=== PATIENT | female | born 1990 | race Caucasian/White ===

== ENCOUNTER 2016-09-02 17:45 | Emergency (ER) | payer OTHER ==
[2016-09-02 18:00] VITALS: BP 110/66; PULSE 72; TEMP 97.9; BMI 38.0
--- NOTE | 2016-09-02 18:03 | PDOC ---
History of Present Illness - General History Source: Patient, Family Exam Limitations: No Limitations - History of Present Illness Initial Comments: 09/02/16 18:34 The patient is a 25 year old female, with a significant past medical history of obesity and ADD, who presents to the emergency department with shortness of breath, chest pain, chills, abdominal pain and diarrhea since yesterday. She reports that her chest pain is localized in the mid sternal chest region, mild in nature, which she describes a pressure like sensation, without radiation or modifying factors. She notes that she gets shortness of breath on minimal exertion. She describes her diarrhea as nonbloody. She describes her abdominal pain as mild and diffused throughout, she denies any radiation or modifying factors. The patient denies headache and dizziness. Denies fever, nausea, vomit and constipation. Denies dysuria, frequency, urgency and hematuria. Allergies: None Past surgical history: None reported Social history: Cigarette use (1.5-2 packs daily), Xanax and tranquilizer use. Alcohol use. PMD - Dr. Arthur Jefferson <Ej Ibarra - Last Filed: 09/02/16 21:06> <Lori Orozco - Last Filed: 09/02/16 21:21> - General History Source: Patient Exam Limitations: No Limitations <Ingrid Whiting - Last Filed: 09/06/16 08:05> - General Chief Complaint: Respiratory Stated Complaint: DIFF BEATHING, VOMITING, DIARRHEA Time Seen by Provider: 09/02/16 17:50 Past History <Ej Ibarra - Last Filed: 09/02/16 21:06> <Lori Orozco - Last Filed: 09/02/16 21:21> - Past Medical History Psychiatric Problems: Yes (ADD) - Immunization History Immunization Up to Date: Yes - Psycho/Social/Smoking Cessation Hx Anxiety: No Suicidal Ideation: No Smoking History: Current every day smoker Have you smoked in the past 12 months: Yes Number of Cigarettes Smoked Daily: 20 If you are a former smoker, when did you quit?: 20 Information on smoking cessation initiated: Yes 'Breaking Loose' booklet given: 09/02/16 Hx Alcohol Use: Yes (occasional) Drug/Substance Use Hx: Yes (XANAX) Substance Use Type: Alcohol, Tranquilizers <Ingrid Whiting - Last Filed: 09/06/16 08:05> - Past Medical History Allergies/Adverse Reactions: Allergies Allergy/AdvReac Type Severity Reaction Status Date / Time No Known Allergies Allergy Verified 05/14/14 19:04 Home Medications: Ambulatory Orders Alprazolam [Xanax] 1 mg PO TID 09/13/13 Amphet Asp/Amphet/D-Amphet [Adderall 20 mg Tablet] 20 mg PO TID 09/13/13 Ondansetron [Zofran Odt -] 4 mg SL TID PRN #10 od.tablet 09/02/16 Trazodone HCl 100 mg PO HS 09/02/16 Review of Systems - Review of Systems Able to Perform ROS?: Yes Comments:: 09/02/16 18:35 GENERAL/CONSTITUTIONAL: +Chills. No fever. No weakness. HEAD, EYES, EARS, NOSE AND THROAT: No change in vision. No ear pain or discharge. No sore throat. CARDIOVASCULAR: +Shortness of breath and chest pain RESPIRATORY: No cough, wheezing, or hemoptysis. GASTROINTESTINAL: +Abdominal pain and diarrhea. No nausea, vomiting, constipation. GENITOURINARY: No dysuria, frequency, or change in urination. MUSCULOSKELETAL: No joint or muscle swelling or pain. No neck or back pain. SKIN: No rash NEUROLOGIC: No headache, vertigo, loss of consciousness, or change in strength/ sensation. ENDOCRINE: No increased thirst. No abnormal weight change HEMATOLOGIC/LYMPHATIC: No anemia, easy bleeding, or history of blood clots. ALLERGIC/IMMUNOLOGIC: No hives or skin allergy. <Ej Ibarra - Last Filed: 09/02/16 21:06> *Physical Exam - Vital Signs Last Vital Signs Temp Pulse Resp BP Pulse Ox 97.9 F 72 18 110/66 100 09/02/16 17:45 09/02/16 17:45 09/02/16 17:45 09/02/16 17:45 09/02/16 17:45 - Physical Exam Comments: 09/02/16 18:37 GENERAL: Awake, alert, and fully oriented, in no acute distress. Obese. HEAD: No signs of trauma, normocephalic, atraumatic EYES: PERRLA, EOMI, sclera anicteric, conjunctiva clear ENT: Auricles normal inspection, hearing grossly normal, nares patent, oropharynx clear without exudates. Moist mucosa NECK: Normal ROM, supple, no lymphadenopathy, JVD, or masses LUNGS: No distress, speaks full sentences, clear to auscultation bilaterally HEART: Regular rate and rhythm, normal S1 and S2, no murmurs, rubs or gallops, peripheral pulses normal and equal bilaterally. ABDOMEN: +Left epigastric tenderness and right lower quadrant tenderness. Soft, normoactive bowel sounds. No guarding, no rebound. No masses EXTREMITIES: Normal inspection, Normal range of motion, no edema. No clubbing or cyanosis. NEUROLOGICAL: Cranial nerves II through XII grossly intact. Normal speech, normal gait, no focal sensorimotor deficits SKIN: Warm, Dry, normal turgor, no rashes or lesions noted. <Ej Ibarra - Last Filed: 09/02/16 21:06> - Vital Signs Last Vital Signs Temp Pulse Resp BP Pulse Ox 97.9 F 72 18 110/66 100 09/02/16 17:45 09/02/16 17:45 09/02/16 17:45 09/02/16 17:45 09/02/16 17:45 <Lori Orozco - Last Filed: 09/02/16 21:21> - Vital Signs Last Vital Signs Temp Pulse Resp BP Pulse Ox 97.9 F 72 18 110/66 100 09/02/16 17:45 09/02/16 17:45 09/02/16 17:45 09/02/16 17:45 09/02/16 17:45 <Ingrid Whiting - Last Filed: 09/06/16 08:05> ED Treatment Course - LABORATORY CBC & Chemistry Diagram: 09/02/16 18:30 09/02/16 18:30 - RADIOLOGY Radiograph Interpretation: 09/02/16 19:51 Chest X-Ray Reviewed by: Dr. Rochelle Odell Impression: Unremarkable examination without evidence of acute lung disease CT abdomen and pelvis with contrast Reviewed by: Dr. Rochelle Odell Impression: Diverticula in the transverse and to a lesser extent descending colon. Inadequate distention versus thickening of the transverse, splenic flexure and proximal descending colon wall without surrounding inflammatory changes. However , colitis, inflammatory versus infectious cannot be ruled out. Otherwise, no acute process is identified within the abdomen and pelvis. <Ej Ibarra - Last Filed: 09/02/16 21:06> - LABORATORY CBC & Chemistry Diagram: 09/02/16 18:30 09/02/16 18:30 - ADDITIONAL ORDERS Additional order review: Laboratory Results 09/02/16 09/02/16 09/02/16 18:30 18:30 18:17 Sodium 140 Potassium 3.9 Chloride 105 Carbon Dioxide 25 Anion Gap 10 BUN 11 Creatinine 0.7 Creat Clearance w eGFR > 60 Random Glucose 101 Calcium 9.6 Total Bilirubin 1.3 H AST 19 ALT 29 Alkaline Phosphatase 61 Total Protein 7.6 Albumin 4.3 Total Amylase 24 L Lipase 31 Urine Color Yellow Urine Appearance Clear Urine pH 7.0 Ur Specific [place] 1.010 Urine Protein Negative Urine Glucose (UA) Negative Urine Ketones Negative Urine Blood Negative Urine Nitrite Negative Urine Bilirubin Negative Urine Urobilinogen 0.2 e.u/dl Ur Leukocyte Esterase 1+ H Urine RBC 0-2 Urine WBC 5-10 Ur Epithelial Cells Few Urine Bacteria Few Urine HCG, Qual Negative 09/02/16 18:30 RBC 5.07 MCV 90.0 MCHC 33.2 RDW 11.8 MPV 8.4 Neutrophils % 77.0 Lymphocytes % 16.6 Monocytes % 4.3 Eosinophils % 1.0 Basophils % 1.1 <Lori Orozco - Last Filed: 09/02/16 21:21> - LABORATORY CBC & Chemistry Diagram: 09/02/16 18:30 09/02/16 18:30 <Ingrid Whiting - Last Filed: 09/06/16 08:05> Medical Decision Making - Medical Decision Making 09/02/16 18:02 A portion of this note was documented by scribe services under my direction. I have reviewed the details of the note, within reason, and agree with the documentation with the following case summary and management plan written by me. Nursing documentation reviewed and incorporated into medical decision making this is a 25-year-old female presented to the emergency Department with multiple complaints complaints including abdominal pain, nausea, vomiting, cough. No fever No chills Patient has had vomiting and diarrhea for the past 4 days. Ill contact? Sister. No recent travel no change in diet. On examination: Patient has diffuse abdominal tenderness No guarding No rebound will do labs Will do CT abd and pelvic Will do CXR Signed out to Dr. orozco pending all studies <Ingrid Whiting - Last Filed: 09/06/16 08:05> *DC/Admit/Observation/Transfer - Attestations Scribe Attestion: 09/02/16 18:37 Documentation prepared by Ej Ibarra, acting as director medical surgical for Ingrid Whiting MD <Ej Ibarra - Last Filed: 09/02/16 21:06> <Lori Orozco - Last Filed: 09/02/16 21:21> <Ingrid Whiting - Last Filed: 09/06/16 08:05> Diagnosis at time of Disposition: Enterocolitis - Discharge Dispostion Disposition: HOME Condition at time of disposition: Stable - Prescriptions Prescriptions: Ondansetron [Zofran Odt -] 4 mg SL TID PRN #10 od.tablet PRN Reason: Nausea - Referrals Referrals: Johann Jefferson MD [Primary Care Provider] - Tonio Arshad MD [Staff Physician] - Call tomorrow - Patient Instructions Printed Discharge Instructions: DI for Colitis Additional Instructions: clear liquids advance diet cautiously Zofran 4mg ODT up to 3 times a day as needed for nausea call Dr Arshad to arrange followup within 3-4 days return to ER if symptoms worsen
[2016-09-02 18:46] LABS: URINE APPEARANCE Clear; URINE BILIRUBIN Negative (NEGATIVE); URINE BLOOD Negative (NEGATIVE); URINE GLUCOSE (UA) Negative (NEGATIVE); URINE KETONE Negative (NEGATIVE); URINE NITRITE Negative (NEGATIVE); URINE PROTEIN Negative (NEGATIVE); URINE UROBILINOGEN 0.2 E.U/dl (0.2-1.0)
[2016-09-02 18:50] LABS: URINE COLOR YELLOW; URINE LEUK ESTERASE 1+ (NEGATIVE)
[2016-09-02 18:53] LABS: BASOPHIL 1.1 % (0-2.0); MCH 29.9 pg (25.7-33.7); MCHC 33.2 g/dl (32.0-36.0); MEAN PLT VOLUME 8.4 fl (7.5-11.1); PLATELET COUNT 268 K/MM3 (134-434); RDW 11.8 % (11.6-15.6); WHITE BLOOD COUNT 12.4 K/mm3 (4.0-10.0)
[2016-09-02 18:59] LABS: URINE BACTERIA FEW /hpf (NEGATIVE); URINE RBC 0-2 /hpf (0-3)
[2016-09-02 19:07] LABS: ALBUMIN 4.3 g/dl (3.5-5.0); ALK PHOS 61 U/L (32-92); AMYLASE 24 U/L (25-125); ANION GAP 10 (8-16); BILIRUBIN,TOTAL 1.3 mg/dl (0.2-1.0); CALCIUM 9.6 mg/dl (8.4-10.2); CO2 25 mmol/L (22-28); CREATININE 0.7 mg/dl (0.6-1.3); GLUCOSE,RANDOM 101 mg/dl (74-106); SGOT/AST 19 U/L (10-42); SGPT/ALT 29 U/L (10-40); TOT PROT 7.6 g/dl (6.4-8.3)
[2016-09-02] MEDS ORDERED: SODIUM CHLORIDE 1,000 ML IV ONE (20:32)
--- NOTE | 2016-09-03 00:14 | PDOC ---
*Physical Exam - Vital Signs Last Vital Signs Temp Pulse Resp BP Pulse Ox 97.9 F 72 18 110/66 100 09/02/16 17:45 09/02/16 17:45 09/02/16 17:45 09/02/16 17:45 09/02/16 17:45 ED Treatment Course - LABORATORY CBC & Chemistry Diagram: 09/02/16 18:30 09/02/16 18:30 - ADDITIONAL ORDERS Additional order review: Laboratory Results 09/02/16 09/02/16 09/02/16 18:30 18:30 18:17 Sodium 140 Potassium 3.9 Chloride 105 Carbon Dioxide 25 Anion Gap 10 BUN 11 Creatinine 0.7 Creat Clearance w eGFR > 60 Random Glucose 101 Calcium 9.6 Total Bilirubin 1.3 H AST 19 ALT 29 Alkaline Phosphatase 61 Total Protein 7.6 Albumin 4.3 Total Amylase 24 L Lipase 31 Urine Color Yellow Urine Appearance Clear Urine pH 7.0 Ur Specific [place] 1.010 Urine Protein Negative Urine Glucose (UA) Negative Urine Ketones Negative Urine Blood Negative Urine Nitrite Negative Urine Bilirubin Negative Urine Urobilinogen 0.2 e.u/dl Ur Leukocyte Esterase 1+ H Urine RBC 0-2 Urine WBC 5-10 Ur Epithelial Cells Few Urine Bacteria Few Urine HCG, Qual Negative 09/02/16 18:30 RBC 5.07 MCV 90.0 MCHC 33.2 RDW 11.8 MPV 8.4 Neutrophils % 77.0 Lymphocytes % 16.6 Monocytes % 4.3 Eosinophils % 1.0 Basophils % 1.1 - Medications Given in the ED: ED Medications Discontinued Medications Generic Name Dose Route Start Last Admin Trade Name Freq PRN Reason Stop Dose Admin Sodium Chloride 1,000 mls @ 1,000 mls/hr 09/02/16 20:32 09/02/16 20:30 Normal Saline - IV 09/02/16 21:31 1,000 mls/hr ASDIR ONE Administration Progress Note - Progress Note Progress Note: Care of this patient received from Dr. Whiting. Abdominal/pelvic CT shows no evidence of acute appendicitis. There is some evidence of colonic diverticula but no clear evidence of acute diverticulitis; no pericolonic abscess/free air. There is some wall thickening suggestive of inflammatory process. No other significant abnormal findings present Results discussed with the patient and her family. Patient is concerned about her sensation of working harder to breathe .Patient is speaking in full sentences,breathing easily with pulse ox of 100% on Room air. CXR shows no abnormality. She is reassured that there is no evidence of acute respiratory process Mother states that she has a history of colitis; the family has used Dr. Arshad as director epidemiology. Patient will maintain clear liquid diet and advance cautiously. Follow-up with Dr. Arshad should be within the next 2-3 days. She should return to the emergency room if she has worsening pain, vomiting or fever. *DC/Admit/Observation/Transfer Diagnosis at time of Disposition: Enterocolitis - Discharge Dispostion Disposition: HOME Condition at time of disposition: Stable - Prescriptions Prescriptions: Ondansetron [Zofran Odt -] 4 mg SL TID PRN #10 od.tablet PRN Reason: Nausea - Referrals Referrals: Tonio Arshad MD [Staff Physician] - Call tomorrow Johann Jefferson MD [Primary Care Provider] - - Patient Instructions Printed Discharge Instructions: DI for Colitis Additional Instructions: clear liquids advance diet cautiously Zofran 4mg ODT up to 3 times a day as needed for nausea call Dr Arshad to arrange followup within 3-4 days return to ER if symptoms worsen - Post Discharge Activity
== END 2016-09-02 21:25 | disposition home or self-care (01) ==
LOC: FER 17:45
PROC: 3E0337Z Introduction of Electrolytic and Water Balance Substance into Peripheral Vein, Percutaneous Approach (ICD-10-PCS; principal; 2016-09-02)
DX: K52.9 Noninfective gastroenteritis and colitis, unspecified (principal); E66.9 Obesity, unspecified; Z68.38 Body mass index [BMI] 38.0-38.9, adult; F17.210 Nicotine dependence, cigarettes, uncomplicated; F98.8 Other specified behavioral and emotional disorders with onset usually occurring in childhood and adolescence
CPT/HCPCS: 36415; 71020-TC; 74177-TC; 80053; 81003; 81015; 82150; 83690; 84703; 85025; 87086; 99284-25

== ENCOUNTER 2017-01-02 19:59 | Emergency (ER) | payer OTHER ==
[2017-01-02 20:12] VITALS: BP 110/60; PULSE 86; TEMP 98.6; BMI 39.7
--- NOTE | 2017-01-02 20:31 | PDOC ---
History of Present Illness - General History Source: Patient, Old Records Exam Limitations: No Limitations - History of Present Illness Initial Comments: 01/02/17 21:12 The patient is a 26 year old female with no significant past medical history who presents to the emergency department with back and abdominal pain for 2 days. The patient states that on Friday night her pain began suddenly and has been constant since. The patient describes her pain as shooting, stabbing, and burning in sensation beginning in her mid right back radiating to her lower right back and the upper right quadrant of her abdomen. She notes that her pain is exacerbated by breathing, walking, and any other type of movement. She reports associated nausea, constipation, and decreased appetite. The patient notes that she was seen here a few months ago after having several months of chronic abdominal discomfort that has not resolved. The patient notes that she has been following with Dr. Williamson. <Davis Nath - Last Filed: 01/02/17 21:50> <Lori Orozco - Last Filed: 01/03/17 02:12> - General Chief Complaint: Chronic pain Stated Complaint: CHRONIC ABDOMINAL PAIN Time Seen by Provider: 01/02/17 20:01 Past History <Davis Nath - Last Filed: 01/02/17 21:50> - Past Medical History GI Disorders: Yes (GASTRITIS) Psychiatric Problems: Yes (ADD) - Immunization History Immunization Up to Date: Yes - Psycho/Social/Smoking Cessation Hx Anxiety: Yes Suicidal Ideation: No Smoking History: Current every day smoker Have you smoked in the past 12 months: Yes Number of Cigarettes Smoked Daily: 10 If you are a former smoker, when did you quit?: 20 Information on smoking cessation initiated: Yes 'Breaking Loose' booklet given: 01/02/17 Hx Alcohol Use: Yes (occasional) Drug/Substance Use Hx: Yes (XANAX) Substance Use Type: Alcohol, Tranquilizers <Lori Orozco - Last Filed: 01/03/17 02:12> - Past Medical History Allergies/Adverse Reactions: Allergies Allergy/AdvReac Type Severity Reaction Status Date / Time No Known Allergies Allergy Verified 05/14/14 19:04 Home Medications: Ambulatory Orders Alprazolam [Xanax] 1 mg PO TID 09/13/13 Amphet Asp/Amphet/D-Amphet [Adderall 20 mg Tablet] 20 mg PO TID 09/13/13 Ondansetron [Zofran Odt -] 4 mg SL TID PRN #10 od.tablet 09/02/16 Trazodone HCl 100 mg PO HS 09/02/16 Ketorolac Tromethamine [Toradol] 10 mg PO BID PRN #10 tablet 01/02/17 Omeprazole 40 mg PO DAILY 01/02/17 Review of Systems - Review of Systems Able to Perform ROS?: Yes Comments:: 01/02/17 21:13 CONSTITUTIONAL: Present: Decreased appetite Absent: fever, no chills, no fatigue EYES: Absent: visual changes ENT: Absent: ear pain, no sore throat CARDIOVASCULAR: Absent: chest pain, no palpitations RESPIRATORY: Absent: cough, no SOB GI: Present: Abdominal pain, nausea, constipation Absent: No vomiting, no diarrhea GENITOURINARY: Absent: dysuria, no frequency, no hematuria MUSCULOSKELETAL: Present: Back pain Absent: No arthralgia. SKIN: Absent: rash NEURO: Absent: headache <Davis Nath - Last Filed: 01/02/17 21:50> *Physical Exam - Vital Signs Last Vital Signs Temp Pulse Resp BP Pulse Ox 98.6 F 86 16 110/60 98 01/02/17 20:10 01/02/17 20:10 01/02/17 20:10 01/02/17 20:10 01/02/17 20:10 - Physical Exam Comments: 01/02/17 21:13 GENERAL: The patient is awake, alert, anxious appearing but in no acute distress. HEAD: Normal with no signs of trauma. EYES: Pupils equal, round and reactive to light, extraocular movements intact, sclera anicteric, conjunctiva clear with no pallor. ENT: Ears normal, nares patent, oropharynx clear without exudates. Moist mucous membranes. NECK: Normal range of motion, supple without lymphadenopathy, JVD, or masses. LUNGS: Breath sounds equal, clear to auscultation bilaterally. No wheeze/ crackles. HEART: Regular rate and rhythm, normal S1 and S2 without murmur or rub. ABDOMEN: (+) Moderate right CVA tenderness. Moderate RUQ tenderness with positve murphys sign. Minimal epigstric tenderness. No masses. No organomegaly. EXTREMITIES: Normal range of motion, no edema. No clubbing or cyanosis. No cords, erythema, or tenderness. NEUROLOGICAL: Cranial nerves II through XII grossly intact. Normal speech, normal gait. SKIN: Warm, Dry, normal turgor, no rashes or lesions noted. <Davis Nath - Last Filed: 01/02/17 21:50> - Vital Signs Last Vital Signs Temp Pulse Resp BP Pulse Ox 98.6 F 86 16 110/60 98 01/02/17 20:10 01/02/17 20:10 01/02/17 20:10 01/02/17 20:10 01/02/17 20:10 <Lori Orozco Marii - Last Filed: 01/03/17 02:12> ED Treatment Course - LABORATORY CBC & Chemistry Diagram: 01/02/17 20:50 01/02/17 20:50 - ADDITIONAL ORDERS Additional order review: Laboratory Results 01/02/17 20:45 Urine Color Yellow Urine Appearance Clear Urine pH 6.5 Ur Specific [place] 1.010 Urine Protein Negative Urine Glucose (UA) Negative Urine Ketones Negative Urine Blood Trace-intact Urine Nitrite Negative Urine Bilirubin Negative Urine Urobilinogen 0.2 e.u/dl Ur Leukocyte Esterase Trace Urine HCG, Qual Negative 01/02/17 20:50 RBC 4.82 MCV 88.9 MCHC 35.0 RDW 12.0 MPV 8.6 Neutrophils % 62.5 Lymphocytes % 28.5 D Monocytes % 4.5 Eosinophils % 1.3 Basophils % 3.2 H - RADIOLOGY Radiograph Interpretation: 01/02/17 21:50 EXAM#: TYPE/EXAM: RESULT: [id number] US/GALLBLADDER US [id number] US/KIDNEY / RENAL US HISTORY PROVIDED: Right upper quadrant pain. Real time examination of the abdomen demonstrates the following: The gallbladder is normal in size and free of calculi with no evidence of intra or extrahepatic biliary duct dilatation. The liver is normal in size and texture with no intrahepatic masses seen. The pancreas is normal in size. It is somewhat heterogeneous in texture with no pancreatic masses identified. The spleen is not enlarged. The kidneys are normal in size with the right kidney measuring 10.7 x 5.6 x 4.2 cm and the left kidney measuring 11.7 x 5.5 x 4.6 cm. They are normal in position and texture with no evidence of hydronephrosis or contour deforming renal masses. There is no sonographic evidence of nephrolithiasis. There is no evidence of AAA. The IVC is patent. IMPRESSION: 1. Normal gallbladder and biliary tree. 2. Morphologically normal kidneys with no evidence of hydronephrosis or acute pathology. Reported By: Caleb Gary MD 01/02/17 1006 - Medications Given in the ED: ED Medications Discontinued Medications Generic Name Dose Route Start Last Admin Trade Name Lizzy PRN Reason Stop Dose Admin Ketorolac Tromethamine 30 mg 01/02/17 20:43 01/02/17 21:04 Toradol Injection - IVPUSH 01/02/17 20:44 30 mg ONCE ONE Administration <Davis Nath - Last Filed: 01/02/17 21:50> - LABORATORY CBC & Chemistry Diagram: 01/02/17 20:50 01/02/17 20:50 <Lori Orozco - Last Filed: 01/03/17 02:12> Medical Decision Making - Medical Decision Making Documentation has been prepared under my direction and personally reviewed by me in its entirety. I attest that this documented accurately reflects all work, treatment, procedures and medical decision making performed by me. As noted above, this 26-year-old woman with history of anxiety and chronic abdominal pain of unclear etiology presents with a few day history of right flank pain extending to the right upper quadrant of her abdomen. Pain worsens with movement; there is no clear history of trauma or overuse. No worsening of patient's chronic nausea and patient has not vomited. There is been no fever or chills. No history of diarrhea or constipation. Exam shows right flank and right upper quadrant tenderness. Gallbladder/right kidney ultrasound performed to evaluate for biliary abnormality or renal stones/hydronephrosis . No evidence of either cholelithiasis or cholecystitis. There are no kidney stones or hydronephrosis. Only abnormality seen was mild heterogeneoustexture to the pancreas. CBC, chemistry profile, lipase, urinalysis, PGU evaluated CBC shows mild elevation of white blood cell count 11,800. The remainder of the CBC is essentially normal. Chemistry profile shows no significant abnormality and lipase is normal at 26. UTI is normal and PGU is negative. Patient was given Toradol 30 mg IV and liter normal saline. Patient states that her pain has been resolved. Since biliary/renal stones appeared to be ruled out and no other solid tissue abnormality seen on ultrasound (since lipase is normal, acute pancreatitis is highly unlikely), pain could be musculoskeletal. Less likely, given patient's age, is zoster prior to onset of rash. Both of these possibilities were discussed with the patient. Since the IV Toradol was so effective, the patient asked for prescription for oral formulation of ketorolac. Patient will be given a small (#10) prescription for Toradol 10 mg by mouth. The patient was cautioned to take this medication with food. She should follow up with her general doctor., Also, spinal surgeon may be needed for consultation if pain is persistent since thoracic spinal nerve issues may be present. Patient's father has been seen by Dr. Castillo in the past and patient states that she would follow-up with him if needed. <Lori Orozco - Last Filed: 01/03/17 02:12> *DC/Admit/Observation/Transfer - Attestations Scribe Attestion: 01/02/17 21:13 Documentation prepared by Davis Nath, acting as medical and health services manager for Lori Orozco MD. <Davis Nath - Last Filed: 01/02/17 21:50> <Lori Orozco - Last Filed: 01/03/17 02:12> Diagnosis at time of Disposition: Right flank pain - Discharge Dispostion Disposition: HOME Condition at time of disposition: Stable - Prescriptions Prescriptions: Ketorolac Tromethamine [Toradol] 10 mg PO BID PRN #10 tablet PRN Reason: Pain - Referrals Referrals: Johann Jefferson MD [Primary Care Provider] - - Patient Instructions Printed Discharge Instructions: DI for Flank Pain Additional Instructions: Toradol 10 mg up to twice a day as needed for pain take Toradol with food as discussed Follow-up with your general doctor and with infectious disease doctor as scheduled Return to ER if you have severe pain/fever/vomiting
[2017-01-02] MEDS ORDERED: KETOROLAC TROMETHAMINE 30 MG/1 ML VIAL IVPUSH ONE (20:43)
[2017-01-02] MEDS ORDERED: SODIUM CHLORIDE 1,000 ML IV STA (20:43)
[2017-01-02 20:52] LABS: PH,URINE 6.5 (4.5-8); URINE APPEARANCE Clear; URINE BILIRUBIN Negative (NEGATIVE); URINE BLOOD Trace-intact (NEGATIVE); URINE GLUCOSE (UA) Negative (NEGATIVE); URINE KETONE Negative (NEGATIVE); URINE LEUK ESTERASE Trace (NEGATIVE); URINE NITRITE Negative (NEGATIVE); URINE PROTEIN Negative (NEGATIVE); URINE UROBILINOGEN 0.2 E.U/dl (0.2-1.0)
[2017-01-02] MEDS ORDERED: KETOROLAC TROMETHAMINE 30 MG/1 ML VIAL ONE ×2 (20:55→21:02)
[2017-01-02 20:56] LABS: URINE COLOR YELLOW
[2017-01-02 21:09] LABS: BASOPHIL 3.2 % (0-2.0); EOSINOPHIL 1.3 % (0-4.5); MCH 31.1 pg (25.7-33.7); MEAN CELL VOLUME 88.9 fl (80-96); MEAN PLT VOLUME 8.6 fl (7.5-11.1); NEUTROPHILS 62.5 % (42.8-82.8); PLATELET COUNT 262 K/MM3 (134-434); WHITE BLOOD COUNT 11.8 K/mm3 (4.0-10.8)
[2017-01-02 21:18] LABS: ALBUMIN 4.3 g/dl (3.5-5.0); ALK PHOS 45 U/L (32-92); ANION GAP 4 (8-16); BILIRUBIN,TOTAL 0.7 mg/dl (0.2-1.0); CALCIUM 9.1 mg/dl (8.4-10.2); CO2 24 mmol/L (22-28); CREATININE 0.9 mg/dl (0.6-1.3); GLUCOSE,RANDOM 88 mg/dl (74-106); SGOT/AST 23 U/L (10-42); SGPT/ALT 25 U/L (10-40); TOT PROT 7.3 g/dl (6.4-8.3)
== END 2017-01-02 22:23 | disposition home or self-care (01) ==
LOC: FER 19:59
PROC: 3E0333Z Introduction of Anti-inflammatory into Peripheral Vein, Percutaneous Approach (ICD-10-PCS; principal; 2017-01-02)
PROC: 3E0337Z Introduction of Electrolytic and Water Balance Substance into Peripheral Vein, Percutaneous Approach (ICD-10-PCS; 2017-01-02)
DX: R10.31 Right lower quadrant pain (principal)
CPT/HCPCS: 36415; 76705-TC; 76775-TC; 80053; 81003; 83690; 84703; 85025; 99282-25

== ENCOUNTER 2017-03-13 18:20 | Emergency (ER) | payer OTHER ==
--- NOTE | 2017-03-13 18:25 | PDOC ---
History of Present Illness - General Chief Complaint: Psychiatric Stated Complaint: NUMBNESS, TINGLING TO ARMS/LEGS, HEADACHE Time Seen by Provider: 03/13/17 18:24 - History of Present Illness Initial Comments: 03/13/17 18:24 Ms. Escamilla is a 26 year old female with a significant past medical history of anxiety, ADHD, Endometriosis, Gastritis, Ovarian Cysts, and Fibroids who presents to the emergency department with a 20-30 minute history of tachycardia , dry mouth, hyperventilation, numbness and tingling that began while attempting to purchase a new car. Currently feels light headed and like she will pass out. Denies fever, chills, vomit, diarrhea and constipation. Denies dysuria, frequency, urgency and hematuria. Allergies: NKDA Past surgical history: None Social history: 1 ppd tobacco use Past History - Past Medical History Allergies/Adverse Reactions: Allergies Allergy/AdvReac Type Severity Reaction Status Date / Time No Known Allergies Allergy Verified 03/13/17 18:25 Home Medications: Ambulatory Orders Alprazolam [Xanax] 1 mg PO TID 09/13/13 Control Pills 1 tab PO ASDIR 03/13/17 L.acidoph,Paracasei, B.lactis [Probiotic] 1 each PO DAILY 03/13/17 Pantoprazole Sodium 40 mg PO DAILY 03/13/17 GI Disorders: Yes (GASTRITIS) Psychiatric Problems: Yes (ADD) - Immunization History Immunization Up to Date: Yes - Psycho/Social/Smoking Cessation Hx Anxiety: Yes Suicidal Ideation: No Smoking History: Current every day smoker Have you smoked in the past 12 months: Yes Number of Cigarettes Smoked Daily: 10 If you are a former smoker, when did you quit?: 20 'Breaking Loose' booklet given: 01/02/17 Hx Alcohol Use: Yes (occasional) Drug/Substance Use Hx: Yes (XANAX) Substance Use Type: Alcohol, Tranquilizers Review of Systems - Review of Systems Comments:: 03/13/17 18:24 GENERAL/CONSTITUTIONAL: No fever or chills. No weakness. HEAD, EYES, EARS, NOSE AND THROAT: No change in vision. No ear pain or discharge. No sore throat. CARDIOVASCULAR: Reports short of breath and breathing quickly RESPIRATORY: No cough, wheezing, or hemoptysis. GASTROINTESTINAL: +Nauseau. No vomiting, diarrhea or constipation. GENITOURINARY: No dysuria, frequency, or change in urination. MUSCULOSKELETAL: No joint or muscle swelling or pain. No neck or back pain. SKIN: No rash NEUROLOGIC: +Current headache. No vertigo, loss of consciousness, or change in strength/sensation. ENDOCRINE: No increased thirst. No abnormal weight change HEMATOLOGIC/LYMPHATIC: No anemia, easy bleeding, or history of blood clots. ALLERGIC/IMMUNOLOGIC: No hives or skin allergy. *Physical Exam - Physical Exam Comments: 03/13/17 18:24 GENERAL: +Acutely Anxious with pressured speech. Awake, alert, and fully oriented, in no acute distress HEAD: No signs of trauma, normocephalic, atraumatic EYES: PERRLA, EOMI, sclera anicteric, conjunctiva clear ENT: Auricles normal inspection, hearing grossly normal, nares patent, oropharynx clear without exudates. Moist mucosa NECK: Normal ROM, supple, no lymphadenopathy, JVD, or masses LUNGS: No distress, speaks full sentences, clear to auscultation bilaterally HEART: Regular rate and rhythm, normal S1 and S2, no murmurs, rubs or gallops, peripheral pulses normal and equal bilaterally. ABDOMEN: Soft, nontender, normoactive bowel sounds. No guarding, no rebound. No masses EXTREMITIES: Normal inspection, Normal range of motion, no edema. No clubbing or cyanosis. NEUROLOGICAL: Cranial nerves II through XII grossly intact. Normal speech, normal gait, no focal sensorimotor deficits SKIN: Warm, Dry, normal turgor, no rashes or lesions noted. Medical Decision Making - Medical Decision Making 03/13/17 18:48 Ms. Escamilla presents with acute anxiety symptoms developed while buying a car. She reports taking xanax 4 times a day at baseline but that her evening dose was not helpful for this episode. Valium 10 and zofran 8 given orally. 03/13/17 19:02 Patient relaxed and laughing in bed. Handed off to incoming team. *DC/Admit/Observation/Transfer Diagnosis at time of Disposition: Panic attack - Discharge Dispostion Condition at time of disposition: Stable
--- NOTE | 2017-03-13 18:30 | PDOC ---
Attending Attestation - Resident Resident Name: Jerad Laws - ED Attending Attestation I have performed the following: I have examined & evaluated the patient, The case was reviewed & discussed with the resident, I agree w/resident's findings & plan, Exceptions are as noted - HPI HPI: 03/13/17 18:29 Anxious - Physicial Exam PE: 03/13/17 18:29 VSS NAD - Medical Decision Making 03/13/17 18:[address] Laws's Assessment and Plan
[2017-03-13 18:33] VITALS: BP 122/75; PULSE 89; TEMP 98.7; BMI 36.0
[2017-03-13] MEDS ORDERED: diazePAM 5 MG TABLET PO ONE (18:35)
[2017-03-13] MEDS ORDERED: ONDANSETRON *ODT* 4 MG TABLET SL ONE (18:35)
[2017-03-13] MEDS ORDERED: diazePAM 5 MG TABLET ONE (18:38)
[2017-03-13] MEDS ORDERED: ONDANSETRON *ODT* 4 MG TABLET ONE (18:38)
--- NOTE | 2017-03-13 19:18 | PDOC ---
*Physical Exam - Vital Signs Last Vital Signs Temp Pulse Resp BP Pulse Ox 98.7 F 89 18 122/75 100 03/13/17 18:20 03/13/17 18:20 03/13/17 18:20 03/13/17 18:20 03/13/17 18:20 ED Treatment Course - Medications Given in the ED: ED Medications Discontinued Medications Generic Name Dose Route Start Last Admin Trade Name Lizzy PRN Reason Stop Dose Admin Diazepam 10 mg 03/13/17 18:35 03/13/17 18:40 Valium - PO 03/13/17 18:36 10 mg ONCE ONE Administration Ondansetron HCl 8 mg 03/13/17 18:35 03/13/17 18:40 Zofran Odt - SL 03/13/17 18:36 8 mg ONCE ONE Administration Progress Note - Progress Note Progress Note: Care of this patient was transferred to me from Dr. Davis at 1900 hrs. Patient is a 26-year-old female who comes in with an anxiety/panic attack. Patient received Valium prior to my evaluation and arrival in the emergency department. At the time of my reevaluation patient was comfortable, laughing and joking and in no distress. Patient will be discharged home and follow-up with her primary care doctor. *DC/Admit/Observation/Transfer Diagnosis at time of Disposition: Panic attack - Discharge Dispostion Condition at time of disposition: Stable - Patient Instructions Additional Instructions: The symptoms your experienced this evening are stable most likely secondary to an anxiety/panic attack. Return to the emergency department immediately with ANY new, persistent or worsening symptoms. Continue any medications as previously prescribed by your physician. You should follow up with your primary doctor as soon as possible regarding today's emergency department visit. . Please make sure your doctor reviews the results of your emergency evaluation. Thank you for coming to the Emergency Department today for your care. It was a pleasure to see you today. Please note that your evaluation is INCOMPLETE until you follow-up with your doctor.
[2017-03-13] MEDS ORDERED: SODIUM CHLORIDE 1,000 ML IV ONE (19:22)
[2017-03-13] MEDS ORDERED: ONDANSETRON 4 MG/2 ML VIAL IVPUSH ONE (19:22)
[2017-03-13 19:35] LABS: URINE APPEARANCE Clear; URINE BILIRUBIN Negative (NEGATIVE); URINE GLUCOSE (UA) Negative (NEGATIVE); URINE KETONE Negative (NEGATIVE); URINE NITRITE Negative (NEGATIVE); URINE PROTEIN Negative (NEGATIVE); URINE UROBILINOGEN 0.2 (0.2-1.0)
[2017-03-13 19:36] LABS: URINE BLOOD Trace-intact (NEGATIVE); URINE COLOR YELLOW; URINE LEUK ESTERASE TRACE (NEGATIVE)
[2017-03-13 19:44] LABS: MCH 30.8 pg (25.7-33.7); MCHC 34.4 g/dl (32.0-36.0); MEAN CELL VOLUME 89.6 fl (80-96); MEAN PLT VOLUME 8.5 fl (7.5-11.1); PLATELET COUNT 253 K/MM3 (134-434); RDW 11.6 % (11.6-15.6); WHITE BLOOD COUNT 11.2 K/mm3 (4.0-10.8)
[2017-03-13 20:01] LABS: ALBUMIN 4.3 g/dl (3.5-5.0); ALK PHOS 61 U/L (32-92); ANION GAP 9 (8-16); BILIRUBIN,TOTAL 0.6 mg/dl (0.2-1.0); CALCIUM 9.8 mg/dl (8.4-10.2); CO2 26 mmol/L (22-28); CREATININE 0.8 mg/dl (0.6-1.3); GLUCOSE,RANDOM 96 mg/dl (74-106); SGOT/AST 21 U/L (10-42); SGPT/ALT 23 U/L (10-40); TOT PROT 7.5 g/dl (6.4-8.3)
[2017-03-13 20:14] LABS: PLATELET ESTIMATE ADEQUATE (NORMAL)
[2017-03-13 20:15] LABS: URINE BACTERIA FEW /hpf (NEGATIVE); URINE RBC 0-1 /hpf (0-3)
[2017-03-13] MEDS ORDERED: MECLIZINE HCL 25 MG TABLET (FP) PO ONE (20:17)
[2017-03-13] MEDS ORDERED: MECLIZINE HCL 25 MG TABLET (FP) ONE (20:18)
--- NOTE | 2017-03-13 20:25 | PDOC ---
*Physical Exam - Vital Signs Last Vital Signs Temp Pulse Resp BP Pulse Ox 98.7 F 89 18 122/75 100 03/13/17 18:20 03/13/17 18:20 03/13/17 18:20 03/13/17 18:20 03/13/17 18:20 ED Treatment Course - LABORATORY CBC & Chemistry Diagram: 03/13/17 19:30 03/13/17 19:30 - ADDITIONAL ORDERS Additional order review: Laboratory Results 03/13/17 03/13/17 19:30 19:20 Sodium 139 Potassium 3.8 Chloride 104 Carbon Dioxide 26 Anion Gap 9 BUN 10 Creatinine 0.8 Creat Clearance w eGFR > 60 Random Glucose 96 Calcium 9.8 Total Bilirubin 0.6 AST 21 ALT 23 Alkaline Phosphatase 61 D Total Protein 7.5 Albumin 4.3 Urine Color Yellow Urine Appearance Clear Urine pH 7.0 Ur Specific [place] 1.010 Urine Protein Negative Urine Glucose (UA) Negative Urine Ketones Negative Urine Blood Trace-intact H Urine Nitrite Negative Urine Bilirubin Negative Urine Urobilinogen 0.2 Ur Leukocyte Esterase Trace H Urine RBC 0-1 Urine WBC 2-5 Ur Epithelial Cells Few Urine Bacteria Few Urine HCG, Qual Negative 03/13/17 19:30 RBC 5.17 MCV 89.6 MCHC 34.4 RDW 11.6 MPV 8.5 Neutrophils % Y Lymphocytes % Y - Medications Given in the ED: ED Medications Discontinued Medications Generic Name Dose Route Start Last Admin Trade Name Guevaraq PRN Reason Stop Dose Admin Diazepam 10 mg 03/13/17 18:35 03/13/17 18:40 Valium - PO 03/13/17 18:36 10 mg ONCE ONE Administration Ondansetron HCl 8 mg 03/13/17 18:35 03/13/17 18:40 Zofran Odt - SL 03/13/17 18:36 8 mg ONCE ONE Administration Progress Note - Progress Note Progress Note: Prior to discharge patient began to feel like the room was spinning and symptoms of vertigo. Patient was concerned that there was something more serious causing her symptoms. Patient was quite anxious about her symptoms so the decision was made to do a basic workup including labs and cardiogram. Patient's cardiogram showed a normal sinus rhythm at a rate of 78, normal intervals no acute ST-T wave changes and was a normal EKG. Patient had a white count of 11.2 which is suggestive of a probable viral etiology for her labrinthitis/vertigo. Patient otherwise was slightly hemoconcentrated and was given a liter of IV fluid. Patient's chemistries were unremarkable, her urinalysis was negative with the exception of a trace amount of red cells and white cells but no evidence of a urinary tract infection. Patient was given copies of all of her blood work and discussed with her the most likely cause of her symptoms as labrinthitis most likely of viral etiology. Patient in addition to that was noted to have some anxiety and on arrival in the emergency room earlier was noted to have some hyperventilation and symptoms of a panic attack most likely triggered by the vertigo. Patient condition was discharged home with her parents. Patient does have a primary care doctor she can follow-up with. *DC/Admit/Observation/Transfer Diagnosis at time of Disposition: Panic attack, Acute viral labyrinthitis - Discharge Dispostion Disposition: HOME Condition at time of disposition: Stable - Prescriptions Prescriptions: Meclizine HCl [Antivert -] 25 mg PO TID #21 tablet - Patient Instructions Additional Instructions: The symptoms your experienced this evening are most likely secondary to a virus effecting your inner ear/balance system. This is called labyrinthitis or vertigo. This then triggered and an anxiety/panic attack. For the spinning sensation take meclizine 1 tablet as often as 3 times a day Return to the emergency department immediately with ANY new, persistent or worsening symptoms. Continue any medications as previously prescribed by your physician. You should follow up with your primary doctor as soon as possible regarding today's emergency department visit. . Please make sure your doctor reviews the results of your emergency evaluation. Thank you for coming to the Emergency Department today for your care. It was a pleasure to see you today. Please note that your evaluation is INCOMPLETE until you follow-up with your doctor.
--- NOTE | 2017-03-14 15:54 | EKG ---
Test Reason : Blood Pressure : / mmHG Vent. Rate : 078 BPM Atrial Rate : 078 BPM P-R Int : 156 ms QRS Dur : 086 ms QT Int : 408 ms P-R-T Axes : 032 051 038 degrees QTc Int : 465 ms NORMAL SINUS RHYTHM WITH SINUS ARRHYTHMIA NO PREVIOUS ECGS AVAILABLE Confirmed by MD CHAO, RITIKA ([id number]) on 03/14/2017 3:54:29 PM Referred By: DR YEAGER Confirmed By:RITIKA GUIDRY MD
== END 2017-03-13 20:51 | disposition home or self-care (01) ==
LOC: FER 18:20
PROC: 3E0337Z Introduction of Electrolytic and Water Balance Substance into Peripheral Vein, Percutaneous Approach (ICD-10-PCS; principal; 2017-03-13)
DX: F41.0 Panic disorder [episodic paroxysmal anxiety] (principal); F17.210 Nicotine dependence, cigarettes, uncomplicated
CPT/HCPCS: 36415; 80053; 81003; 81015; 84703; 85025; 93005; 99284-25

== ENCOUNTER 2017-03-25 08:50 | Day surgery (SDC) | payer OTHER ==
[2017-03-24 10:11] VITALS: BMI 36.5
[2017-03-25] MEDS ORDERED: DESFLURANE GAS 240 ML BOTTLE IH ONE (09:44)
[2017-03-25] MEDS ORDERED: SEVOFLURANE 250 ML BTL ONE (09:45)
[2017-03-25] MEDS ORDERED: PROPOFOL 20 ML ONE ×8 (09:57→11:31)
[2017-03-25] MEDS ORDERED: MIDAZOLAM HCL 2 MG/2 ML SINGLE DOSE VIAL ONE ×2 (10:14)
[2017-03-25] MEDS ORDERED: DEXAMETHASONE SOD PHOSPHATE 4 MG/1 ML VIAL ONE (10:15)
[2017-03-25] MEDS ORDERED: ceFAZolin SODIUM 1 GM VIAL ONE (10:15)
[2017-03-25] MEDS ORDERED: KETOROLAC TROMETHAMINE 30 MG/1 ML VIAL ONE (10:15)
[2017-03-25] MEDS ORDERED: SODIUM CHLORIDE 0.9% P/F 10 ML VIAL IJ ONE (10:16)
[2017-03-25] MEDS ORDERED: SUCCINYLCHOLINE CHLORIDE 200 MG/10 ML VIAL ONE (10:16)
[2017-03-25] MEDS ORDERED: ROCURONIUM BROMIDE 50 MG/5 ML VIAL ONE (10:16)
--- NOTE | 2017-03-25 10:16 | HP ---
Past Medical History - Primary Care Physician PCP:: Ángel Beatty - Admission Chief Complaint: pelvic pain, menorrhagia, dysmenorrhia, lt ovarian cyst , r/o endometriosis History of Present Illness: 26 yo f c/o sever pelvic pain worsen before and during periods,not responding to ANSAIDs, also has heavy menses blood running down her legs with clots, no hx of anemia, sono 3 cm complex lt ovarian cyst . r/o endometrioma, admitted for D&C laparoscopy, possible lt ovarian cystectomy and r/o endometriosis. risks of procedure and ulternatives has discussed with patient History Source: Patient Limitations to Obtaining History: No Limitations - Past Medical History Gastrointestinal: Yes: GERD ...: 0 ...Para: 0 Psych: Yes: Anxiety, Panic (on xanex prn) - Past Surgical History Hx Myomectomy: No Hx Transabdominal Cerclage: No - Smoking History Smoking history: Current every day smoker Have you smoked in the past 12 months: Yes Aproximately how many cigarettes per day: 10 If you are a former smoker, when did you quit?: 20 - Alcohol/Substance Use Hx Alcohol Use: Yes (occasional) - Social History History of Recent Travel: No Home Medications - Allergies Allergies/Adverse Reactions: Allergies Allergy/AdvReac Type Severity Reaction Status Date / Time No Known Allergies Allergy Verified 03/24/17 10:15 - Home Medications Home Medications: Ambulatory Orders Alprazolam [Xanax] 1 mg PO QID 09/13/13 L.acidoph,Paracasei, B.lactis [Probiotic] 1 each PO DAILY 03/13/17 Pantoprazole Sodium 40 mg PO DAILY 03/13/17 Docusate Sodium [Colace -] 100 mg PO DAILY 03/24/17 Review of Systems - Review of Systems Constitutional: reports: No Symptoms Eyes: reports: No Symptoms HENT: reports: No Symptoms Neck: reports: No Symptoms Cardiovascular: reports: No Symptoms Respiratory: reports: No Symptoms Gastrointestinal: reports: Abdominal Pain Genitourinary: reports: Vaginal Bleeding Breasts: reports: No Symptoms Reported Musculoskeletal: reports: No Symptoms Integumentary: reports: No Symptoms Neurological: reports: No Symptoms Endocrine: reports: No Symptoms Hematology/Lymphatic: reports: No Symptoms Psychiatric: reports: Anxiety, Panic Physical Exam-SERVICE DELIVERY ANALYST Vital Signs: Vital Signs Temperature 98.5 F 09/12/17 09:19 Pulse Rate 76 03/25/17 09:19 Respiratory Rate 18 03/25/17 09:19 Blood Pressure 107/64 03/25/17 09:19 O2 Sat by Pulse Oximetry (%) 98 03/25/17 09:18 Constitutional: Yes: Well Nourished, No Distress, Calm Eyes: Yes: WNL, Conjunctiva Clear, EOM Intact HENT: Yes: WNL, Atraumatic, Normocephalic Neck: Yes: WNL, Supple, Trachea Midline Cardiovascular: Yes: WNL, Regular Rate and Rhythm Respiratory: Yes: WNL, Regular, CTA Bilaterally Gastrointestinal: Yes: WNL ...Rectal Exam: Yes: WNL Renal/: Yes: WNL Pelvis: Yes: WNL External Genitalia: Yes: Normal Internal Exam Deferred: No Vaginal Exam: Yes: Normal Cervix: Yes: Normal Uterus: Yes: Normal Adnexa: Tender: Left, Right Breast(s): Yes: WNL Musculoskeletal: Yes: WNL Extremities: Yes: WNL Edema: No Integumentary: Yes: WNL Neurological: Yes: WNL, Alert, Oriented ...Motor Strength: WNL Psychiatric: Yes: WNL, Alert, Oriented Problem List - Problem (1) Pelvic pain Code(s): R10.2 - PELVIC AND PERINEAL PAIN (2) Menorrhagia Code(s): N92.0 - EXCESSIVE AND FREQUENT MENSTRUATION WITH REGULAR CYCLE Qualifiers: Menorrahagia type: with regular cycle Qualified Code(s): N92.0 - Excessive and frequent menstruation with regular cycle (3) Left ovarian cyst Code(s): N83.202 - UNSPECIFIED OVARIAN CYST, LEFT SIDE Assessment/Plan r/o endometriosis , plan D&C , laparoscopy , possible left ovarian cystectomy, possible excision and fulguration of endometrioma
[2017-03-25] MEDS ORDERED: LIDOCAINE HCL/PF 2% SDV 5ML VIAL ONE (10:23)
[2017-03-25] MEDS ORDERED: ceFAZolin SODIUM 1 GM VIAL IVPB ONE (10:47)
[2017-03-25] MEDS ORDERED: oxyCODONE HCL 5 MG TABLET PO PRN ×2 (12:32→12:37)
[2017-03-25] MEDS ORDERED: ONDANSETRON 4 MG/2 ML VIAL IVPUSH PRN (12:32)
[2017-03-25] MEDS ORDERED: IBUPROFEN 800 MG/8 ML IJ IVPB PRN (12:37)
[2017-03-25] MEDS ORDERED: IBUPROFEN 600 MG TABLET (FP) PO PRN (12:37)
[2017-03-25] MEDS ORDERED: ONDANSETRON 4 MG/2 ML VIAL IVPB PRN (12:37)
[2017-03-25] MEDS ORDERED: ELECTROLYTE-148 SOLN 1,000 ML IV SCH (12:45)
[2017-03-25] MEDS ORDERED: LACTATED RINGERS SOLUTION 1,000 ML IV SCH (12:45)
[2017-03-25 16:07] VITALS: TEMP 98.1
[2017-03-25 16:11] VITALS: BP 107/61; PULSE 66
[2017-03-25 16:18] LABS: MCH 30.8 pg (25.7-33.7); MCHC 34.7 g/dl (32.0-36.0); MEAN PLT VOLUME 8.8 fl (7.5-11.1); PLATELET COUNT 213 K/MM3 (134-434); RDW 12.2 % (11.6-15.6); WHITE BLOOD COUNT 14.7 K/mm3 (4.0-10.0)
[2017-03-25 17:56] LABS: PLATELET ESTIMATE ADEQUATE (NORMAL); TOTAL CELLS COUNTED 100
[2017-03-25 17:57] LABS: REACTIVE LYMPHOCYTES 1 % (0-80)
--- NOTE | 2017-03-26 16:03 | PATH ---
Surgical Pathology Report Patient Name: RUBIA WALTON [facility]. Rec. #: [id number] /Age/Gender: 1990 (Age: 26) / F Account: [id number] Location: [facility] Taken: 03/25/2017 Received: 03/25/2017 Reported: 03/26/2017 Physicians: Ángel Beatty M.D. Specimen(s) Received A: ENDOMETRIAL CURETTINGS B: RIGHT OVARIAN CYST C: ADHESIONS Clinical History Pelvic pain Final Diagnosis A. ENDOMETRIUM, CURETTAGE: FRAGMENTS OF INACTIVE APPEARING ENDOMETRIUM WITH EVIDENCE OF CHRONIC ENDOMETRITIS. FRAGMENTS OF BENIGN CERVICAL TISSUE WITH SQUAMOUS METAPLASIA. FRAGMENTS OF BENIGN SQUAMOUS EPITHELIUM. B. OVARY, RIGHT, CYSTECTOMY: HEMORRHAGIC CORPUS LUTEUM CYST. C. ADHESION TISSUE: BENIGN FIBROVASCULAR TISSUE AND FIBRINOHEMORRHAGIC MATERIAL CONSISTENT WITH ADHESION. Electronically Signed Tal Haro M.D. Gross Description A. Received in formalin labeled "endometrial curettings" is a 2.2 x 2.0 x 0.3 cm aggregate of valdez-red soft tissue fragments. The formalin is filtered and the specimen is entirely submitted in one cassette. B. Received in formalin labeled "right ovarian cyst" is a 2.8 x 2.3 x 0.7 cm aggregate of valdez-pink soft tissue fragments, consistent with portions of a disrupted ovarian cyst. The specimen is entirely submitted in 3 cassettes. C. Received in formalin labeled "adhesion tissue" is a 0.5 cm in greatest dimension pink-valdez soft tissue fragment. The specimen is submitted in toto in one cassette. 03/25/201703/25/2017
--- NOTE | 2017-03-26 16:17 | PATH ---
Cytology Non-Gynecological Report Patient Name: RUBIA WALTON [facility]. Rec. #: [id number] /Age/Gender: 1990 (Age: 26) / F Account: [id number] Location: [facility] SUR[facility] Taken: 03/25/2017 Received: 03/25/2017 Reported: 03/26/2017 Physicians: Ángel Beatty M.D. Specimen(s) Received PELVIC WASHINGS Clinical History Pelvic pain Final Diagnosis PELVIC WASHINGS: SATISFACTORY FOR EVALUATION. NO MALIGNANT CELLS IDENTIFIED. REACTIVE MESOTHELIAL CELLS HISTIOCYTES AND MIXED INFLAMMATORY CELLS. Comment: Refer to [id number] for the surgical pathology results. Electronically Signed Tal Haro M.D. Gross Description Received is 15 cc of bloody appearing fluid fresh. One cytofunnel slide and one cell block are made.
--- NOTE | 2017-03-31 11:16 | OP ---
DATE OF OPERATION: 03/25/2017 PREOPERATIVE DIAGNOSES: Pelvic pain, menorrhagia, right ovarian cyst, rule out endometriosis. POSTOPERATIVE DIAGNOSES: Right ovarian cyst with right ovarian torsion and chronic pelvic inflammatory disease, and pelvic adhesions. PROCEDURE: Dilatation and curettage and laparoscopy, right ovarian cystectomy and untwisting of the right ovary, and lysis of pelvic adhesions. DESCRIPTION OF OPERATION: The patient was taken to the operating room. Under adequate general anesthesia in dorsal lithotomy position, examination under anesthesia revealed the external genitalia to be normal. Vagina was normal. Cervix clean; no lesion. Uterus: Normal size. Adnexa: No masses palpable. Then, with a weighted speculum in the vagina, anterior lip of the cervix was grasped with single-tooth tenaculum, and then, cervix was slightly dilated. Then, with a smooth curette, uterine cavity was curetted gently. Then, Hulka was introduced into the uterine cavity for manipulation. Then, patient was prepped and draped for a pelviscopy. A small infraumbilical skin incision was made. Veress needle was introduced. Pneumoperitoneum established. A 5-mm trocar was introduced through the subumbilical area. Then, scope was introduced. Under direct vision, a 5-mm trocar was introduced through the left hypogastric and then a 5-mm through the right hypogastric area. Then, visualization of the pelvic organs showed upper abdomen to be normal. There were multiple filmy adhesions in the cul-de-sac area. The left tube was adherent in the cul-de-sac with filmy adhesions. These adhesions were lysed with scissors and with bipolar cautery. Then, hemostasis established. Then, the right ovary had an about 3-4 cm cyst with no excrescence and no adhesions, but the left ovary was twisted in the ovarian ligament, but it had viable tissues. At this time, the ovary was untwisted, and then, the right ovarian cystectomy was done by opening up the ovarian capsule. Then, with the LigaSure bipolar cautery, the cyst was removed from the ovary. Then, hemostasis established. There was some oozing from the ovarian bed which FloSeal was applied, and hemostasis was established. Then, the specimen was removed through the 5-mm trocar. Then, pelvic cavity was irrigated. No active bleeding was seen. There was inflammatory tissue seen in the cul-de-sac from the chronic old PID. The left ovary was normal. Then, the left tube had some filmy adhesions which were lysed and released. Both fimbria appeared to be normal. No hydrosalpinx. Then, the abdomen was emptied of all the gases, instruments withdrawn, and the umbilical and right and left hypogastric areas were closed with interrupted suture of 2-0 Biosyn. The patient tolerated the procedure well, left the OR in good condition. Mauri [id number]
== END 2017-03-25 16:14 | disposition home or self-care (01) ==
LOC: JASU-SURG 08:50
PROVIDERS: ATTEND Obstetrics & Gynecology
PROC: 0UDB7ZX Extraction of Endometrium, Via Natural or Artificial Opening, Diagnostic (ICD-10-PCS; 2017-03-25)
PROC: 0UB04ZZ Excision of Right Ovary, Percutaneous Endoscopic Approach (ICD-10-PCS; principal; 2017-03-25 10:30)
DX: N92.0 Excessive and frequent menstruation with regular cycle (principal); N83.201 Unspecified ovarian cyst, right side; N83.511 Torsion of right ovary and ovarian pedicle; N73.9 Female pelvic inflammatory disease, unspecified
CPT/HCPCS: 36415; 84703; 85025; 87070; 87075; 87102; 87116; 87205; 87206; 87210; 88108; 88304-TC; 88305-TC; 94760

== ENCOUNTER 2017-05-24 15:08 | Emergency (ER) | payer OTHER ==
[2017-05-24 15:58] LABS: BASOPHIL 1.9 % (0-2.0); EOSINOPHIL 1.8 % (0-4.5); MCHC 34.5 g/dl (32.0-36.0); MEAN CELL VOLUME 89.9 fl (80-96); MEAN PLT VOLUME 8.2 fl (7.5-11.1); NEUTROPHILS 66.4 % (42.8-82.8); PLATELET COUNT 282 K/MM3 (134-434); RDW 11.4 % (11.6-15.6); URINE APPEARANCE Clear; URINE BILIRUBIN Negative (NEGATIVE); URINE BLOOD Negative (NEGATIVE); URINE GLUCOSE (UA) Negative (NEGATIVE); URINE KETONE Negative (NEGATIVE); URINE LEUK ESTERASE Negative (NEGATIVE); URINE NITRITE Negative (NEGATIVE); URINE PROTEIN Negative (NEGATIVE); URINE UROBILINOGEN 0.2 (0.2-1.0); WHITE BLOOD COUNT 9.6 K/mm3 (4.0-10.8)
[2017-05-24 16:01] LABS: URINE COLOR YELLOW
[2017-05-24 16:11] VITALS: BP 117/6; PULSE 70; TEMP 98.4; BMI 28.1
[2017-05-24 16:28] LABS: ALBUMIN 4.1 g/dl (3.5-5.0); ALK PHOS 54 U/L (32-92); ANION GAP 8 (8-16); BILIRUBIN,TOTAL 0.7 mg/dl (0.2-1.0); CALCIUM 9.6 mg/dl (8.4-10.2); CO2 27 mmol/L (22-28); CREATININE 0.7 mg/dl (0.6-1.3); GLUCOSE,RANDOM 95 mg/dl (74-106); SGOT/AST 22 U/L (10-42); SGPT/ALT 25 U/L (10-40); TOT PROT 7.3 g/dl (6.4-8.3)
--- NOTE | 2017-05-24 16:31 | PDOC ---
History of Present Illness - General Chief Complaint: Nausea/Vomiting Stated Complaint: DIZZY,DARK STOOL, VOMITING Time Seen by Provider: 05/24/17 15:46 - History of Present Illness Initial Comments: 05/24/17 16:35 The patient is a 26 yo f w/ PMH ovarian cyst, ovarian torsion, gastritis comes into the ED w/ a 1 day history of nausea, vomiting and abdominal pain. Patient states that she was in her normal state of health until about 12:45 pm, when she began to have nausea and vomited. The patient thought she was a red tinge to the vomit, but had no blood when she vomited a second time. In addition to this the patient had one instance of dark stools, but denies any douglas blood. Patient denies chest pain, shortness of breath, fever, chills, vaginal discharge , burning on urination, urinary frequency. Past History - Past Medical History Allergies/Adverse Reactions: Allergies Allergy/AdvReac Type Severity Reaction Status Date / Time No Known Allergies Allergy Verified 05/24/17 15:11 Home Medications: Ambulatory Orders Pantoprazole Sodium 40 mg PO DAILY 03/13/17 Alprazolam [Xanax] 1 mg PO TID PRN 05/24/17 Ibuprofen 800 mg PO Q6H PRN #14 tablet 05/24/17 Metoclopramide HCl [Reglan] 10 mg PO TID PRN #21 tablet 05/24/17 Ondansetron [Zofran -] 8 mg PO PRN PRN 05/24/17 COPD: No GI Disorders: Yes (GASTRITIS) Psychiatric Problems: Yes (ADD) - Immunization History Immunization Up to Date: Yes - Suicide/Smoking/Psychosocial Hx Smoking History: Current every day smoker Have you smoked in the past 12 months: Yes Number of Cigarettes Smoked Daily: 10 If you are a former smoker, when did you quit?: 20 Information on smoking cessation initiated: Yes 'Breaking Loose' booklet given: 05/24/17 Hx Alcohol Use: No Drug/Substance Use Hx: No Substance Use Type: None Review of Systems - Review of Systems Constitutional: No: Chills, Fever, Weakness HEENTM: Yes: Blurred Vision Respiratory: No: Cough, Shortness of Breath, SOB with Exertion Cardiac (ROS): Yes: Lightheadedness. No: Chest Pain, Edema, Palpitations ABD/GI: Yes: Nausea, Vomiting. No: Abdominal Distended, Blood Streaked Bowels, Diarrhea, Rectal Bleeding : No: Burning, Dysuria, Discharge *Physical Exam - Vital Signs Last Vital Signs Temp Pulse Resp BP Pulse Ox 98.4 F 70 20 117/6 97 05/24/17 15:09 05/24/17 15:09 05/24/17 15:09 05/24/17 15:09 05/24/17 15:09 - Physical Exam General Appearance: Yes: Appropriately Dressed. No: Apparent Distress Respiratory/Chest: positive: Lungs Clear, Normal Breath Sounds. negative: Chest Tender, Respiratory Distress, Accessory Muscle Use Cardiovascular: positive: Regular Rhythm, Regular Rate, S1, S2. negative: Edema , JVD, Murmur, Gallop/S3, Gallop/S4 Female Pelvic Exam: positive: normal external exam, cervical os closed, normal adnexa. negative: discharge, lesions Gastrointestinal/Abdominal: positive: Normal Bowel Sounds, Tender (tenderness to palpation in the right lower quadrant), Flat, Soft Integumentary: positive: Normal Color, Dry, Warm ED Treatment Course - LABORATORY CBC & Chemistry Diagram: 05/24/17 15:51 05/24/17 15:44 - ADDITIONAL ORDERS Additional order review: Laboratory Results 05/24/17 15:51 Urine Color Yellow Urine Appearance Clear Urine pH 5.0 D Ur Specific [place] <= 1.005 Urine Protein Negative Urine Glucose (UA) Negative Urine Ketones Negative Urine Blood Negative Urine Nitrite Negative Urine Bilirubin Negative Urine Urobilinogen 0.2 Ur Leukocyte Esterase Negative 05/24/17 15:51 RBC 5.12 MCV 89.9 MCHC 34.5 RDW 11.4 L MPV 8.2 Neutrophils % 66.4 Lymphocytes % 25.3 Monocytes % 4.6 Eosinophils % 1.8 Basophils % 1.9 Medical Decision Making - Medical Decision Making 05/24/17 16:47 The patient is a 26 yo f w/ PMH ovarian cyst s/p surgical removal, ovarian torsion, vertigo, anxiety, gastritis comes into the ED with a 1 day history of nausea, vomiting, abdominal pain and dark stools. The patient has a history of ovarian dysfunction so a STEE[facility] JACK etiology must be considered. Appendicitis must also be considered in a patient with RLQ pain. -CBC, CMP WNL -UA WNL -upreg negative -pelvic exam WNL -transvaginal ultrasound in progress -meclizine 10mg -reglan 10 mg 05/24/17 18:14 -transvaginal ultrasound negative for ovarian cyst or ovarian torsion. -prescribed 800mg ibuprofen Q6H for pain -patient states that Reglan helped her nausea; will prescribe reglan for her to take at home. -patient stable for discharge with close follow up -return parameters discussed. *DC/Admit/Observation/Transfer Diagnosis at time of Disposition: Right sided abdominal pain - Discharge Dispostion Disposition: HOME Condition at time of disposition: Improved Admit: No - Prescriptions Prescriptions: Ibuprofen 800 mg PO Q6H PRN #14 tablet PRN Reason: Pain Metoclopramide HCl [Reglan] 10 mg PO TID PRN #21 tablet PRN Reason: Nausea And/Or Vomiting - Referrals - Patient Instructions Printed Discharge Instructions: DI for Vomiting -- Adult, DI for Nausea -- Adult Additional Instructions: You should follow up with your primary care physician within 1-2 days of discharge. You should also follow up with your OB-[facility] within 1-2 days of discharge. You can take ibuprofen for your pain. You can take reglan for your nausea. We have sent these prescriptions to your pharmacy. If your abdominal pain gets worse, if you begin to experience fevers or chills, if you continue to vomit despite medications or if any of your medications become worse, please call your doctor or return to the Emergency department. - Post Discharge Activity
[2017-05-24] MEDS ORDERED: MECLIZINE HCL 25 MG TABLET (FP) PO ONE (16:48)
[2017-05-24] MEDS ORDERED: MECLIZINE HCL 25 MG TABLET (FP) ONE (16:59)
[2017-05-24] MEDS ORDERED: METOCLOPRAMIDE HCL 10 MG TABLET (FP) PO ONE ×2 (17:18→17:28)
[2017-05-24] MEDS ORDERED: IBUPROFEN 400 MG TABLET (FP) PO ONE ×2 (18:08→18:10)
== END 2017-05-24 18:23 | disposition home or self-care (01) ==
LOC: FER 15:08
DX: R10.31 Right lower quadrant pain (principal); F17.210 Nicotine dependence, cigarettes, uncomplicated; F98.8 Other specified behavioral and emotional disorders with onset usually occurring in childhood and adolescence
CPT/HCPCS: 36415; 76830-TC; 80053; 81003; 84703; 85025; 87491; 87591; 99283-25

== ENCOUNTER 2017-07-16 18:34 | Emergency (ER) | payer OTHER ==
[2017-07-16 18:43] VITALS: BP 110/88; PULSE 106; TEMP 98.7; BMI 38.6
--- NOTE | 2017-07-16 18:45 | PDOC ---
Rapid Medical Evaluation Time Seen by Provider: 07/16/17 18:39 Medical Evaluation: Allergies Allergy/AdvReac Type Severity Reaction Status Date / Time No Known Allergies Allergy Verified 05/24/17 15:11 I have performed a brief in-person evaluation of this patient. The patient presents with a chief complaint of: right arm and b/l knee pain s/p slip and fall on ice yesterday. Pt states her right knee "bent in the opposite direction" and she feels unstable when putting pressure on the right leg. Pertinent physical exam findings: ecchymosis to right distal forearm with TTP; right knee medial and lateral joint line TTP. No patellar TTP b/l. I have ordered the following: hcg. xray b/l knees, right forearm xray The patient will proceed to the ED for further evaluation.
--- NOTE | 2017-07-16 19:42 | PDOC ---
History of Present Illness - General Chief Complaint: Injury Stated Complaint: FALL INJURY Time Seen by Provider: 07/16/17 18:39 - History of Present Illness Initial Comments: 07/16/17 19:26 CHIEF COMPLAINT: R arm, knee pain HISTORY OF PRESENT ILLNESS: 26 yo F presents to fast track with right arm and b/ l knee pain s/p slip and fall on ice yesterday. Pt states her right knee "bent in the opposite direction" and she feels unstable when putting pressure on the right leg. No recent travel or sick contacts. PAST MEDICAL HISTORY: Denies past medical history FAMILY HISTORY: Denies SOCIAL HISTORY: Denies tobacco, alcohol, illicit drug use. SURGICAL HISTORY: Denies ALLERGIES: No known drug allergies REVIEW OF SYSTEMS General/Constitutional: Denies fever or chills. Denies weakness. HEENT: Denies change in vision. Denies ear pain or discharge. Denies sore throat. Cardiovascular: Denies chest pain or shortness of breath. Respiratory: Denies cough, wheezing, or hemoptysis. Gastrointestinal: Denies nausea, vomiting, diarrhea or constipation. Denies rectal bleeding. Genitourinary: Denies dysuria, frequency, or change in urination. Musculoskeletal: Pain to b/l knees, worse on R. Denies joint or muscle swelling or pain. Denies neck or back pain. PHYSICAL EXAM General Appearance: Well-appearing, appropriately dressed. No apparent distress , no intoxication. HEENT: EOMI, PERRLA,. No photophobia, scleral icterus. Respiratory/Chest: Lungs CTAB. Cardiovascular: RRR. S1, S2. Gastrointestinal/Abdominal: Normal bowel sounds. Abdomen soft, non-distended. No tenderness or rebound tenderness. No organomegaly, pulsatile mass, guarding , hernia, hepatomegaly, splenomegaly. Musculoskeletal/Extremities: Ecchymosis to right distal forearm ; tenderness to right anterior medial knee, no ecchymosis or erythema. FROM of all extremities, normal capillary refill. Pelvis Stable. No CVA tenderness. No tenderness to extremities, pedal edema, swelling, erythema or deformity. Integumentary: Appropriate color, dry, warm. No cyanosis, erythema, jaundice or rash Neurologic: parking attendant II-XII intact. Fully oriented, alert. Appropriate mood/affect. Motor strength 5/5. No appreciable EOM palsy, facial droop or sensory deficit. Past History - Past Medical History Allergies/Adverse Reactions: Allergies Allergy/AdvReac Type Severity Reaction Status Date / Time No Known Allergies Allergy Verified 07/16/17 18:43 Home Medications: Ambulatory Orders Pantoprazole Sodium 40 mg PO DAILY 03/13/17 Alprazolam [Xanax] 1 mg PO TID PRN 05/24/17 Ibuprofen 800 mg PO Q6H PRN #14 tablet 05/24/17 Metoclopramide HCl [Reglan] 10 mg PO TID PRN #21 tablet 05/24/17 Ondansetron [Zofran -] 8 mg PO PRN PRN 05/24/17 Dextroamphetamine/Amphetamine [Adderall Xr 20 mg Capsule] 20 mg PO ASDIR COPD: No GI Disorders: Yes (GASTRITIS) Psychiatric Problems: Yes (ADD) - Immunization History Immunization Up to Date: Yes - Suicide/Smoking/Psychosocial Hx Smoking History: Current every day smoker Have you smoked in the past 12 months: Yes Number of Cigarettes Smoked Daily: 20 If you are a former smoker, when did you quit?: 20 Information on smoking cessation initiated: No 'Breaking Loose' booklet given: 05/24/17 Hx Alcohol Use: Yes (SOCIAL) Drug/Substance Use Hx: No Substance Use Type: None *Physical Exam - Vital Signs Last Vital Signs Temp Pulse Resp BP Pulse Ox 98.7 F 106 H 20 110/88 99 07/16/17 18:38 07/16/17 18:38 07/16/17 18:38 07/16/17 18:38 07/16/17 18:38 Medical Decision Making - Medical Decision Making 07/16/17 19:53 26 yo F presents to fast track with right arm and b/l knee pain s/p slip and fall on ice yesterday. -urine preg, x-ray ordered in [facility] awaiting urine -Toradol 60 mg IM Case discussed in detail with LIBERTAD Shane including history, physical exam and ancillary studies. In brief, this patient is being seen in the ED for a chief complaint of: R arm, b/l knee pain I have completed the initial assessment interview note and have ordered the following labs: urine preg I have reviewed the following results: none Pending results: upreg, x-rays Plan for disposition as follows: pending NPA Acosta has assumed care for the patient and will complete the evaluation and treatment. *DC/Admit/Observation/Transfer - Referrals Referrals: Johann Jefferson MD [Primary Care Provider] - - Patient Instructions - Post Discharge Activity
[2017-07-16] MEDS ORDERED: KETOROLAC TROMETHAMINE 60 MG/2 ML VIAL IM ONE (19:54)
[2017-07-16] MEDS ORDERED: KETOROLAC TROMETHAMINE 60 MG/2 ML VIAL ONE (20:37)
--- NOTE | 2017-07-16 21:25 | PDOC ---
*Physical Exam - Vital Signs Last Vital Signs Temp Pulse Resp BP Pulse Ox 98.7 F 106 H 20 110/88 99 07/16/17 18:38 07/16/17 18:38 07/16/17 18:38 07/16/17 18:38 07/16/17 18:38 ED Treatment Course - ADDITIONAL ORDERS Additional order review: Laboratory Results 07/16/17 19:35 Urine HCG, Qual Negative - RADIOLOGY Radiology Studies Ordered: Category Date Time Status FOREARM- RIGHT [RAD] Stat Radiology 07/16/17 20:54 Taken - Medications Given in the ED: ED Medications Discontinued Medications Generic Name Dose Route Start Last Admin Trade Name Freemerson PRN Reason Stop Dose Admin Ketorolac Tromethamine 60 mg 07/16/17 19:54 07/16/17 21:03 Toradol Injection - IM 07/16/17 19:55 60 mg ONCE ONE Administration Progress Note - Progress Note Progress Note: Received patient from LIBERTAD Rucker. X-rays is read by me: No fractures noted. Patient feels relief after receiving Toradol. I will discharge the patient with crutches and knee immobilizer and follow-up with orthopedics. *DC/Admit/Observation/Transfer Diagnosis at time of Disposition: Knee sprain Qualifiers: Encounter type: initial encounter Involved ligament of knee: unspecified ligament Laterality: right Qualified Code(s): S83.91XA - Sprain of unspecified site of right knee, initial encounter - Discharge Dispostion Disposition: HOME Condition at time of disposition: Stable Admit: No - Prescriptions Prescriptions: Tramadol HCl [Ultram] 50 mg PO BID #6 tablet MDD 2 - Referrals Referrals: Johann Jefferson MD [Staff Physician] - Mo Espinoza MD [Staff Physician] - - Patient Instructions Additional Instructions: Place ice on to affected knee for 20 minutes. Remove after 20 minutes and then repeat. Take tramadol as prescribed. You may take Motrin in between doses of tramadol to help control pain. Use crutches until you see orthopedist. You've been given a referral from orthopedist please follow-up 1 week if symptoms do not resolve. Return to emergency department for numbness or tingling to the foot, worsening pain, or any other concerns. Thank you very much for choosing us to provide your emergent healthcare needs. - Post Discharge Activity
== END 2017-07-16 22:17 | disposition home or self-care (01) ==
LOC: JERFT 18:34
PROC: 2W3QXYZ Immobilization of Right Lower Leg using Other Device (ICD-10-PCS; principal; 2017-07-16)
DX: S89.81XA Other specified injuries of right lower leg, initial encounter (principal); S50.11XA Contusion of right forearm, initial encounter; W00.0XXA Fall on same level due to ice and snow, initial encounter; Y93.01 Activity, walking, marching and hiking; Y92.89 Other specified places as the place of occurrence of the external cause; Y99.8 Other external cause status
CPT/HCPCS: 73090-TC-RT; 73560-TC-LT; 73560-TC-RT; 84703; 99282-25

== ENCOUNTER 2017-11-10 11:50 | Emergency (ER) | payer OTHER ==
[2017-11-10 11:58] VITALS: BP 109/61; PULSE 58; TEMP 97.8; BMI 36.8
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
[2017-11-10] MEDS ORDERED: IBUPROFEN 400 MG TABLET (FP) PO ONE (13:05)
[2017-11-10] MEDS ORDERED: IBUPROFEN 600 MG TABLET (FP) PO ONE (13:25)
== END 2017-11-10 13:30 | disposition home or self-care (01) ==
LOC: SUPCPDRO 11:50 → FER 11:50
DX: T25.022A Burn of unspecified degree of left foot, initial encounter (principal); X08.8XXA Exposure to other specified smoke, fire and flames, initial encounter; Y93.89 Activity, other specified; Y92.9 Unspecified place or not applicable; F98.8 Other specified behavioral and emotional disorders with onset usually occurring in childhood and adolescence; F17.210 Nicotine dependence, cigarettes, uncomplicated
CPT/HCPCS: 99282-25

== ENCOUNTER 2018-01-29 22:44 | Emergency (ER) | payer OTHER ==
[2018-01-29 22:51] VITALS: BP 116/71; PULSE 86; TEMP 98.6; BMI 41.9
--- NOTE | 2018-01-29 22:59 | PDOC ---
History of Present Illness - General Chief Complaint: Ear Problem Stated Complaint: RT EAR PAIN Time Seen by Provider: 01/29/18 22:52 History Source: Patient Exam Limitations: No Limitations - History of Present Illness Initial Comments: 01/29/18 22:59 Ms Wade is a 27 yo F with a history of vertigo x 1 year She has been seen by several ENT, has been worked up with MRI, Tilt Table testing (she has had multiple ER visits which were unrevealing) She presents to the ER with a complaint of severe right ear pain She noted sudden onset of Severe right ear pain followed by right sided headache Mother gave ear drops which cause some things to come out of her ear and her ear pain improved Pt reports continued headache No fevers, or chills No direct trauma to the ear drum with Q tip or other blunt instrument No head trauma PMH: Vertigo, Asthma, Gastritis, PSH: Denies Meds: Zofran, Dramamine ALL: NKDA Social: Denies drug or cigarette use FH: Mother gets recurrent ear infections GENERAL/CONSTITUTIONAL: No: fever, chills, weakness, loss of appetite. HEAD, EYES, EARS, NOSE AND THROAT: Yes: right ear pain No: change in vision, discharge, sore throat, throat swelling. CARDIOVASCULAR: No: chest pain, lightheadedness, palpitations, syncope RESPIRATORY: No: cough, shortness of breath GASTROINTESTINAL: No: nausea, vomiting, diarrhea, abdominal pain GENITOURINARY: No: dysuria, hematuria, frequency, urgency, flank pain. MUSCULOSKELETAL: No: back pain, neck pain, joint pain, muscle swelling or pain SKIN: No: lesions, pallor, rash or easy bruising. NEUROLOGIC: Yes: headache, vertigo No: paresthesias, weakness PE: GENERAL: The patient is in no acute distress. HEAD: Normal with no signs of trauma. EYES: PERRLA, EOMI, sclera anicteric, conjunctiva clear. ENT: Ears normal, EAC clean, no debris noted, TM clear, no erythema, no fluid behind ear drum, Moist mucous membranes. NECK: Normal range of motion, supple, no nuchal rigidity LUNGS: Breath sounds equal, clear to auscultation bilaterally HEART:Regular rate and rhythm ABDOMEN: Soft, nontender EXTREMITIES: Normal range of motion NEUROLOGICAL: Cranial nerves II through XII grossly intact. Normal speech. No focal neurological deficits. MUSCULOSKELETAL: Back non-tender to palpation, no CVA tenderness SKIN: No rashes or lesions noted. 01/29/18 23:59 01/30/18 00:08 01/30/18 00:13 01/30/18 00:14 01/30/18 00:15 01/30/18 01:15 Past History - Past Medical History Allergies/Adverse Reactions: Allergies Allergy/AdvReac Type Severity Reaction Status Date / Time No Known Allergies Allergy Verified 11/10/17 11:52 Home Medications: Ambulatory Orders Alprazolam [Xanax] 1 mg PO TID PRN 05/24/17 Ondansetron [Zofran -] 8 mg PO PRN PRN 05/24/17 Dextroamphetamine/Amphetamine [Adderall Xr 20 mg Capsule] 20 mg PO BID 07/16/17 Ibuprofen 800 mg PO TID PRN #20 tablet 11/10/17 Ranitidine [Zantac -] 300 mg PO BID 11/10/17 Albuterol Sulfate [Proair Hfa] 8.5 gm IH PRN PRN 01/29/18 Valtrex 01/29/18 Acetaminophen/Caffeine/Butalb [Fioricet -] 1 tab PO Q8H PRN #10 tablet MDD 3 Meclizine HCl [Antivert -] 25 mg PO TID PRN #21 tablet 01/30/18 Asthma: Yes COPD: No GI Disorders: Yes (GASTRITIS) Psychiatric Problems: Yes (ADD,ANXIETY) Other medical history: HERPES - Immunization History Immunization Up to Date: Yes - Suicide/Smoking/Psychosocial Hx Smoking History: Current every day smoker Have you smoked in the past 12 months: Yes Number of Cigarettes Smoked Daily: 20 If you are a former smoker, when did you quit?: 20 Information on smoking cessation initiated: Yes 'Breaking Loose' booklet given: 11/10/17 Hx Alcohol Use: (social) Drug/Substance Use Hx: No Substance Use Type: None *Physical Exam - Vital Signs Last Vital Signs Temp Pulse Resp BP Pulse Ox 98.6 F 86 18 116/71 99 01/29/18 22:46 01/29/18 22:46 01/29/18 22:46 01/29/18 22:46 01/29/18 22:46 Medical Decision Making - Medical Decision Making 01/30/18 00:10 27 yo F presenting to the ER with a complaint of ear pain and headache Pt has had a long standing history of vertigo which is intermittent and has been a challenge to diagnose Pt now has ear pain and headache above the ear pain Offered to place IV and do IV medications Pt refusing to stay for IV pain medications Requesting po medications Will give: Reglan Tylenol #3 01/30/18 00:40 Pt presented to the nursing station requesting to go home She states that she feels better Small residual headache Would like to go to sleep Will discharge with instructions to take: Excedrin Migraine if headache is moderate Fiorecet if headache is severe Pt will be following up with ENT in [place] Clinical Impression: Otalgia, initial presentation Headache, initial presentation 01/30/18 00:16 01/30/18 01:16 *DC/Admit/Observation/Transfer Diagnosis at time of Disposition: Otalgia of right ear Headache Qualifiers: Headache type: unspecified Headache chronicity pattern: acute headache Intractability: not intractable Qualified Code(s): R51 - Headache - Discharge Dispostion Disposition: HOME Condition at time of disposition: Stable Decision to Admit order: No - Prescriptions Prescriptions: Acetaminophen/Caffeine/Butalb [Fioricet -] 1 tab PO Q8H PRN #10 tablet MDD 3 PRN Reason: severe headache Meclizine HCl [Antivert -] 25 mg PO TID PRN #21 tablet PRN Reason: Vertigo - Referrals Referrals: Julio Hobson MD [Primary Care Provider] - Apolinar Taylor MD [Staff Physician] - Michael Hinton MD [Staff Physician] - - Patient Instructions Printed Discharge Instructions: Vertigo (Alternative Therapy), DI for Vertigo, DI for Headache, DI for Ear Pain-Adult Additional Instructions: Ms. Escamilla Thank you for coming in to the ER today Please be sure to follow up with your new ENT I have included some names of other physicians you may be able to follow up with also - Dr. Hinton (ENT), Dr. King (Neuro) Please take Excedrin for moderate headaches (per manufacture's instructions) You can try taking Fiorecet as prescribed for severe headaches Feel free to return to the ER for any other concerns or complaints, if you have worsening symptoms, symptoms that don't improve with medications, or any other concerns or complaints - Post Discharge Activity
[2018-01-29] MEDS ORDERED: ACETAMINOPHEN WITH CODEINE 300MG/30MG TABLET PO ONE (23:54)
[2018-01-29] MEDS ORDERED: METOCLOPRAMIDE HCL 10 MG TABLET (FP) PO ONE (23:54)
[2018-01-30] MEDS ORDERED: ACETAMINOPHEN WITH CODEINE 300MG/30MG TABLET ONE (00:01)
[2018-01-30] MEDS ORDERED: METOCLOPRAMIDE HCL 10 MG TABLET (FP) PO ONE (00:01)
== END 2018-01-30 00:33 | disposition home or self-care (01) ==
LOC: FER 22:44
DX: H92.01 Otalgia, right ear (principal); R51 Headache
CPT/HCPCS: 99281-25

== ENCOUNTER 2018-04-15 18:34 | Emergency (ER) | payer OTHER ==
[2018-04-15 19:10] VITALS: BP 108/62; PULSE 81; TEMP 97.9; BMI 38.9
--- NOTE | 2018-04-15 19:10 | PDOC ---
History of Present Illness - History of Present Illness Initial Comments: The patient is a 27 year old female, with a significant past medical history of ADHD, anxiety, and dyspepsia, who presents to the emergency department with, increased anxiety. As per patient, her symptoms onset at 5pm as heightened moods and increased anxiousness. She took 1mg of Xanax in the morning, at 5pm, and at approximately 6pm when she began to feel difficulty taking deep inspirations. She is on Xanax QID but, takes it only as needed. She denies recent fevers, chills, headache or dizziness. She denies recent nausea, vomit, diarrhea or constipation. She denies recent dysuria, frequency, urgency or hematuria. She denies recent chest pain. PAST MEDICAL HISTORY: ADHD, anxiety, and dyspepsia PAST SURGICAL HISTORY: no significant history FAMILY HISTORY: no pertinent history SOCIAL HISTORY: One pack per day smoker. Pt lives with family and is employed. MEDICATIONS: reviewed ALLERGIES: As per nursing notes ROS: General: No fevers or chills, no weakness, no weight loss HEENT: No change in vision. No sore throat,. No ear pain CardioVascular: No chest pain +Respiratory: Shortness of breath. No cough, or wheezing. Gastrointestinal: no nausea, vomiting, diarrhea or constipation, No rectal bleeding Genitourinary: No dysuria, hematuria, or frequency Musculoskeletal: No joint or muscle pain or swelling Neurologic: No headache, vertigo, dizziness or loss of consciousness +Psychiatric: Increased anxiety. nor depression Skin: No rashes or easy bruising Endocrine: no increased thirst or abnormal weight change Allergic: no skin or latex allergy All other systems reviewed and normal Physical Exam: General: Well-nourished well-developed individual, no acute distress HEENT: Throat: Normal, tonsils normal, no erythema or exudate Neck: Supple, no meningeal signs, no lymphadenopathy Eyes:Pupils equal reactive and round, extraocular motion intact Chest: Nontender to palpation Cardiac: S1-S2 normal, regular rate and rhythm, no murmurs rubs or gallops Respiratory: Lungs clear to auscultation bilateral Extremities: Warm, dry, no cyanosis, clubbing, or edema Skin: No rashes Neuro: Alert and oriented x3, nonfocal exam, grossly intact, normal gait Psych: Normal mood and affect <Tabatha Escamilla - Last Filed: 04/15/18 19:39> - General History Source: Patient Exam Limitations: No Limitations - History of Present Illness Initial Comments: A portion of this note was documented by scribe services under my direction. I have reviewed the details of the note, within reason, and agree with the documentation. The case summary and management plan written by me. Assessment and plan: This is a 27-year-old female who comes in complaining of a panic attack. Patient had taken some Xanax prior to coming in was given some more Xanax here in the emergency room with improvement of her symptoms however patient then began to complain that she felt nauseous but continued to eat pretzels and chips without difficulty. Patient discharged home will follow up with her therapist. <Yasmine Perea I - Last Filed: 04/15/18 20:17> - General Chief Complaint: Psychiatric Stated Complaint: panic attack Time Seen by Provider: 04/15/18 19:09 Past History <Tabatha Escamilla - Last Filed: 04/15/18 19:39> - Immunization History Immunization Up to Date: Yes Tetanus Status: Unknown - Social History Smoking Status: Current every day smoker Number of Cigarettes Per Day: 20 <Yasmine Perea I - Last Filed: 04/15/18 20:17> - Past Medical History Allergies/Adverse Reactions: Allergies No Known Allergies Allergy (Verified 11/10/17 11:52) Home Medications: Ambulatory Orders Alprazolam [Xanax] 1 mg PO QID PRN 05/24/17 Ranitidine [Zantac -] 300 mg PO BID 11/10/17 *Physical Exam - Vital Signs Last Vital Signs Temp Pulse Resp BP Pulse Ox 97.9 F 81 20 108/62 99 04/15/18 18:35 04/15/18 18:35 04/15/18 18:35 04/15/18 18:35 04/15/18 18:35 <Tabatha Escamilla - Last Filed: 04/15/18 19:39> - Vital Signs Last Vital Signs Temp Pulse Resp BP Pulse Ox 97.9 F 81 20 108/62 99 04/15/18 18:35 04/15/18 18:35 04/15/18 18:35 04/15/18 18:35 04/15/18 18:35 <Yasmine Perea I - Last Filed: 04/15/18 20:17> Plan - Medications Given in the ED: ED Medications Discontinued Medications Generic Name Dose Route Start Last Admin Trade Name Lizzy PRN Reason Stop Dose Admin Alprazolam 2 mg 04/15/18 19:15 04/15/18 19:38 Xanax - PO 04/15/18 19:16 2 mg ONCE ONE Administration <Tabatha Escamilla - Last Filed: 04/15/18 19:39> *DC/Admit/Observation/Transfer - Attestations Scribe Attestion: 04/15/18 19:40 Documentation prepared by Tabatha Escamilla, acting as medical claims processor for Yasmine Perea MD. <Tabatha Escamilla - Last Filed: 04/15/18 19:39> - Discharge Dispostion Decision to Admit order: No <Yasmine Perea I - Last Filed: 04/15/18 20:17> Diagnosis at time of Disposition: Panic attacks - Discharge Dispostion Disposition: HOME - Patient Instructions Additional Instructions: Follow-up with your therapist if symptoms persist. Return to the emergency department immediately with ANY new, persistent or worsening symptoms. Continue any medications as previously prescribed by your physician. . Please make sure your doctor reviews the results of your emergency evaluation. Thank you for coming to the Emergency Department today for your care. It was a pleasure to see you today. Please note that your evaluation is INCOMPLETE until you follow-up with your doctor.
[2018-04-15] MEDS ORDERED: ALPRAZolam 2 MG TABLET PO ONE (19:15)
[2018-04-15] MEDS ORDERED: ALPRAZolam 0.25 MG TABLET ONE ×2 (19:34)
== END 2018-04-15 20:27 | disposition home or self-care (01) ==
LOC: FER 18:34
DX: F41.0 Panic disorder [episodic paroxysmal anxiety] (principal)
CPT/HCPCS: 84703; 99281-25

== ENCOUNTER 2018-05-12 15:15 | Emergency (ER) | payer OTHER ==
--- NOTE | 2018-05-12 15:18 | PDOC ---
History of Present Illness - General Chief Complaint: Nausea/Vomiting Stated Complaint: N/V Time Seen by Provider: 05/12/18 15:18 - History of Present Illness Initial Comments: 05/12/18 15:25 The patient is a 27 year old female with a history of anxiety, asthma, gastritis who presents for evaluation of nausea and vomiting. The patient reports a 2 hour history of nausea and multiple episodes of non-bloody, non- bilious, vomiting prompting her presentation to the ED for further evaluation. She also notes some LUQ abdominal cramping associated with the vomiting that has resolved. She states that she has a history of vertigo and has been experiencing dizziness since the onset of her symptoms as well. She otherwise denies fevers, chills, SOB, chest pain, numbness, tingling, weakness, or changes with urination or bowel movements. Past History - Past Medical History Allergies/Adverse Reactions: Allergies Allergy/AdvReac Type Severity Reaction Status Date / Time No Known Allergies Allergy Verified 11/10/17 11:52 Home Medications: Ambulatory Orders Alprazolam [Xanax] 1 mg PO QID PRN 05/24/17 Ranitidine [Zantac -] 300 mg PO BID 11/10/17 Meclizine HCl [Antivert -] 25 mg PO DAILY #30 tablet 05/12/18 Asthma: Yes COPD: No GI Disorders: Yes (GASTRITIS) Psychiatric Problems: Yes (ADD,ANXIETY) - Immunization History Immunization Up to Date: Yes - Suicide/Smoking/Psychosocial Hx Smoking History: Current every day smoker Have you smoked in the past 12 months: Yes Number of Cigarettes Smoked Daily: 20 If you are a former smoker, when did you quit?: 20 'Breaking Loose' booklet given: 04/15/18 Hx Alcohol Use: No Drug/Substance Use Hx: No Substance Use Type: None Review of Systems - Review of Systems Comments:: 05/12/18 15:27 Constitutional: No fevers, chills, fatigue, malaise HEENT: No Rhinorrhea, nasal congestion, visual changes Cardiovascular: No chest pain, syncope, palpitations, lightheadedness Respiratory: No Cough, SOB, Hemoptysis, Gastrointestinal: Nausea, vomiting, abdominal pain. No Constipation, Diarrhea, Melena Genitourinary: No Dysuria, Frequency, Urgency, Hesitancy, Hematuria, Flank pain Musculoskeletal: No Myalgia, arthralgia Skin: No rashes, itching, bruising, pallor Neurologic: Dizziness. No Headache, Numbness, Weakness, or Tingling Psychiatric: No Hallucinations. No SI or HI *Physical Exam - Physical Exam Comments: 05/12/18 15:28 General Appearance: Nourished. No Apparent Distress HEENT: EOMI, DANIEL. No Pharyngeal Erythema, Tonsillar Exudate, Tonsillar Erythema Neck: No Cervical Lymphadenopathy Respiratory/Chest: Lungs Clear, Normal Breath Sounds. No Crackles, Rales, Rhonchi, Wheezing Cardiovascular: Regular Rhythm, Regular Rate. No Murmur, Gallops, Rubs Gastrointestinal/Abdominal: Normal Bowel Sounds, Soft. No Guarding, Rebound, Tenderness Musculoskeletal: No CVA Tenderness Extremity: Normal Capillary Refill Integumentary: Normal Color, Dry, Warm Neurologic: retail helper II-XII NML intact, Fully Oriented, Alert, Normal Mood/Affect, Normal Response, ED Treatment Course - LABORATORY CBC & Chemistry Diagram: 05/12/18 15:22 05/12/18 15:35 Medical Decision Making - Medical Decision Making 05/12/18 15:28 The patient is a 27 year old female with a history of anxiety, asthma, gastritis who presents for evaluation of nausea and vomiting. Differential includes but is not limited to: Gastritis, Pancreatitis, Vertigo, Infectious, Metabolic Derangement. Given the patient's history and physical exam, we will obtain a cbc, cmp, lipase,to evaluate further. We will treat with iv fluids, zofran, pepcid, meclazine and continue to monitor and reassess while here in the ED. 05/12/18 18:23 CBC, cmp, are unremarkable. The patient reports improvement in her symptoms. We are comfortable discharging the patient home with primary care provider follow up on meclazine. We discussed the results, plan, and return precautions with the patient who voiced understanding and is agreeable with the plan. *DC/Admit/Observation/Transfer Diagnosis at time of Disposition: Dizziness Nausea & vomiting Qualifiers: Vomiting type: unspecified Vomiting Intractability: non-intractable Qualified Code(s): R11.2 - Nausea with vomiting, unspecified - Discharge Dispostion Disposition: HOME Condition at time of disposition: Stable - Prescriptions Prescriptions: Meclizine HCl [Antivert -] 25 mg PO DAILY #30 tablet - Referrals - Patient Instructions Printed Discharge Instructions: DI for Nausea -- Adult, DI for Vomiting -- Adult Additional Instructions: Please return to the ER if you experience concerning or worsening symptoms including worsening difficulty breathing, weakness, or chest pain, abdominal pain. Your lab results were normal here in the ER. We have sent a prescription to your pharmacy for meclazine that you may take to help with your dizziness. Please call to schedule a follow up appointment with your primary care provider within 2-3 days to discuss your ER visit and further management of your symptoms. - Post Discharge Activity
[2018-05-12] MEDS ORDERED: ONDANSETRON 4 MG/2 ML VIAL IVPUSH ONE (15:23)
[2018-05-12] MEDS ORDERED: SODIUM CHLORIDE 1,000 ML IV STA (15:23)
[2018-05-12] MEDS ORDERED: FAMOTIDINE 20 MG/50 ML IVPB 20 MG/50 ML MG IVPB ONE ×2 (15:23→15:39)
[2018-05-12] MEDS ORDERED: MECLIZINE HCL 25 MG TABLET (FP) PO ONE (15:23)
[2018-05-12 15:24] VITALS: BP 114/69; PULSE 90; TEMP 98; BMI 38.9
[2018-05-12] MEDS ORDERED: ONDANSETRON 4 MG/2 ML VIAL ONE (15:39)
[2018-05-12] MEDS ORDERED: MECLIZINE HCL 25 MG TABLET (FP) ONE (15:55)
[2018-05-12 16:04] LABS: ALBUMIN 3.9 g/dl (3.5-5.0); ALK PHOS 50 U/L (32-92); ANION GAP 6 MMOL/L (8-16); BILIRUBIN,TOTAL 0.9 mg/dl (0.2-1.0); BLOOD UREA NITROGEN 14 mg/dl (7-18); CALCIUM 8.9 mg/dl (8.4-10.2); CHLORIDE 105 mmol/L (98-107); CO2 24 mmol/L (22-28); CREATININE 0.9 mg/dl (0.6-1.3); GLUCOSE,RANDOM 89 mg/dl (74-106); POTASSIUM 3.9 mmol/L (3.5-5.1); SGOT/AST 20 U/L (10-42); SGPT/ALT 26 U/L (10-40); SODIUM 135 mmol/L (136-145); TOT PROT 6.9 g/dl (6.4-8.3)
--- NOTE | 2018-05-12 16:06 | PDOC ---
Attending Attestation - Resident Resident Name: Tejinder Mcgregor - ED Attending Attestation I have performed the following: I have examined & evaluated the patient, The case was reviewed & discussed with the resident, I agree w/resident's findings & plan - HPI HPI: 05/12/18 16:01 27y/o F obese, h/o chronic GI illness diagnosed with gastritis in the past under evaluation with Dr. Stevens of GI at [facility], presents with n/v today. intractable nbnb nausea/vomiting despite taking zofran, transient LUQ pain that resolved. also exacerbated her baseline vertigo, so she presents for evaluation. no f/c, no diet change/travel/sick contacts. normal BM this morning - Physicial Exam PE: 05/12/18 16:03 afebrile, vss obese, no jaundice/pallor dry mucosa s1s2 rrr, ctab soft/nt/nd bs nl. no guarding/rebound, no cvat. no rash - Medical Decision Making 05/12/18 16:04 27y/o F h/o gastritis and GI illness p/w intractable n/v today without associated pain or focal tenderness. ? gastritis exacerbation, r/o biliary or pancreatic etiology (past u/s and ctap wnl). vertigo exacerbation. labs, ua ivf, anti-emetic, antacid meclizine reassess scheduled for outpt MRI abd for small bowel eval, has f/u with her GI
[2018-05-12 16:14] LABS: BASO % 0.6 % (0-2.0); EOS % 2.1 % (0-4.5); HEMATOCRIT 45.2 % (32.4-45.2); HEMOGLOBIN 15.1 GM/dl (10.7-15.3); LYMPH % 30.2 % (8-40); MCH 31.1 pg (25.7-33.7); MCHC 33.4 g/dl (32.0-36.0); MEAN CELL VOLUME 93.2 fl (80-96); MEAN PLT VOLUME 8.9 fl (7.5-11.1); MONO % 7.7 % (3.8-10.2); NEUT % 59.4 % (42.8-82.8); PLATELET COUNT 233 K/MM3 (134-434); RBC 4.85 M/mm3 (3.60-5.2); RDW 11.4 % (11.6-15.6); WHITE BLOOD COUNT 8.3 K/mm3 (4.0-10.8)
== END 2018-05-12 17:08 | disposition home or self-care (01) ==
LOC: FER 15:15
PROC: 3E033GC Introduction of Other Therapeutic Substance into Peripheral Vein, Percutaneous Approach (ICD-10-PCS; principal; 2018-05-12)
PROC: 3E0337Z Introduction of Electrolytic and Water Balance Substance into Peripheral Vein, Percutaneous Approach (ICD-10-PCS; 2018-05-12)
DX: R11.2 Nausea with vomiting, unspecified (principal); F41.9 Anxiety disorder, unspecified; J45.909 Unspecified asthma, uncomplicated
CPT/HCPCS: 36415; 80053; 83690; 84703; 85025; 96361; 96365; 96375; 99282-25; J7030

== ENCOUNTER 2018-05-16 05:12 | Emergency (ER) | payer OTHER ==
[2018-05-16] MEDS ORDERED: SODIUM CHLORIDE 0.9% 1000 ML INFUS.BAG IV ONE (05:19)
[2018-05-16] MEDS ORDERED: METOCLOPRAMIDE HCL INJECTION 10 MG/2 ML VIAL IVPB ONE (05:19)
[2018-05-16 05:22] VITALS: BP 130/77; TEMP 98.1; BMI 38.9
[2018-05-16] MEDS ORDERED: LORazepam 2 MG/ML SDV VIAL ONE (05:24)
[2018-05-16] MEDS ORDERED: METOCLOPRAMIDE HCL INJECTION 10 MG/2 ML VIAL ONE (05:24)
--- NOTE | 2018-05-16 05:32 | PDOC ---
History of Present Illness - General Chief Complaint: Nausea/Vomiting Stated Complaint: NAUSEA/VOMITING Time Seen by Provider: 05/16/18 05:15 - History of Present Illness Initial Comments: 05/16/18 05:32 27 year old female, with a significant past medical history of ADHD, anxiety, and dyspepsia, who presents to the emergency department with anxiety, n/v, green emesis, after drinking at a strip club last night. Pt. very anxious stating "I feel like I'm on drugs" but denying any illicit drug use, only taking the xanax and adderall prescribed. Pt. was in the ED 3 days ago for similar NV. No travel, sick contacts, symptoms are moderate, persistent constant, with no exacerbating or alleviating factors Past History - Past Medical History Allergies/Adverse Reactions: Allergies Allergy/AdvReac Type Severity Reaction Status Date / Time No Known Allergies Allergy Verified 11/10/17 11:52 Home Medications: Ambulatory Orders Alprazolam [Xanax] 1 mg PO QID PRN 05/24/17 Ranitidine [Zantac -] 300 mg PO BID 11/10/17 Dextroamphetamine/Amphetamine [Adderall Xr 30 mg Capsule] 30 mg PO DAILY Asthma: Yes COPD: No GI Disorders: Yes (GASTRITIS) Psychiatric Problems: Yes (ADD,ANXIETY) - Immunization History Immunization Up to Date: Yes - Suicide/Smoking/Psychosocial Hx Smoking History: Current every day smoker Have you smoked in the past 12 months: Yes Number of Cigarettes Smoked Daily: 20 If you are a former smoker, when did you quit?: 20 Information on smoking cessation initiated: Yes 'Breaking Loose' booklet given: 04/15/18 Hx Alcohol Use: No Drug/Substance Use Hx: Yes Substance Use Type: None Review of Systems - Review of Systems Comments:: 05/16/18 05:57 ROS: A complete review of 10 out of 10 review of systems is taken and is negative apart from what is previously mentioned below and in the HPI. *Physical Exam - Vital Signs Last Vital Signs Temp Pulse Resp BP Pulse Ox 98.1 F 128 H 18 130/77 92 L 05/16/18 05:17 05/16/18 05:17 05/16/18 05:17 05/16/18 05:17 05/16/18 05:17 - Physical Exam Comments: 05/16/18 05:58 Vitals: Triage Vital signs reviewed General Appearance: Obsese, Mildly dischelved, Head: Atraumatic, Eyes: Pupils equal reactive round, extraocular movement intact, dilated Cardiac: Regular rate and rhythym, no murmurs, no rubs, no gallops, Lungs: Clear to auscultation bilateral, good air movement bilaterally, Abdomen: Soft, non distended, normal bowel sounds, non tender to palpation Extremities: Full range of motion to all extremities, no cyanosis, clubbing, or edema Skin: Warm and dry, no rashes or lesions, no rash, no petechiae Neuro:Strength intact to all extremities, Sensation intact to all extremities, gait normal Psych: Anxious ED Treatment Course - LABORATORY CBC & Chemistry Diagram: 05/16/18 05:35 05/16/18 05:35 Medical Decision Making - Medical Decision Making 05/16/18 06:47 27 year old female, with a significant past medical history of ADHD, anxiety, and dyspepsia, who presents to the emergency department with anxiety, n/v, green emesis, after drinking at a strip club last night. Pt. very anxious stating "I feel like I'm on drugs" but denying any illicit drug use, only taking the xanax and adderall prescribed. Pt. was in the ED 3 days ago for similar NV. No travel, sick contacts, symptoms are moderate, persistent constant, with no exacerbating or alleviating factors Patient very anxious regarding her symptomatology. On her examination she had no significant reproducible abdominal tenderness there was no rebound or guarding Patient requesting to be checked for drugs We will treat emesis with Reglan and Benadryl and Ativan we'll check labs hydrate drug screen observe and reassess Dr. Fowler to follow-up results and reevaluate patient. *DC/Admit/Observation/Transfer Diagnosis at time of Disposition: Nausea & vomiting Qualifiers: Vomiting type: unspecified Vomiting Intractability: unspecified Qualified Code( s): R11.2 - Nausea with vomiting, unspecified - Discharge Dispostion Condition at time of disposition: Stable - Referrals Referrals: Julio Hobson MD [Primary Care Provider] - - Patient Instructions - Post Discharge Activity
[2018-05-16 06:26] LABS: BASO % 0.7 % (0-2.0); EOS % 1.4 % (0-4.5); HEMATOCRIT 45.8 % (32.4-45.2); HEMOGLOBIN 15.4 GM/dL (10.7-15.3); LYMPH % 29.8 % (8-40); MCH 30.5 pg (25.7-33.7); MCHC 33.6 g/dl (32.0-36.0); MEAN PLT VOLUME 8.4 fl (7.5-11.1); MONO % 7.2 % (3.8-10.2); NEUT % 60.9 % (42.8-82.8); PLATELET COUNT 229 K/MM3 (134-434); RBC 5.03 M/mm3 (3.60-5.2); RDW 12.6 % (11.6-15.6); WHITE BLOOD COUNT 9.7 K/mm3 (4.0-10.0)
[2018-05-16 06:47] LABS: METHADONE, UR NEGATIVE ng/ml (CUTOFF=300); OPIATES, URI NEGATIVE ng/ml (CUTOFF=300); PHENCYCLIDINE,URINE NEGATIVE ng/ml (CUTOFF=25); URINE AMPHETAMINES NEGATIVE ng/ml (CUTOFF=500); URINE BARBITURATES NEGATIVE ng/ml (CUTOFF=200)
[2018-05-16 06:52] LABS: COCAINE, UR POSITIVE ng/ml (CUTOFF=300); URINE BENZODIAZEPINES POSITIVE ng/ml (CUTOFF=200)
[2018-05-16 06:53] LABS: ALBUMIN 4.1 g/dl (3.4-5.0); ALK PHOS 67 U/L (45-117); ANION GAP 7 MMOL/L (8-16); BILIRUBIN,TOTAL 0.4 mg/dL (0.2-1); BLOOD UREA NITROGEN 13 mg/dL (7-18); CALCIUM 8.7 mg/dL (8.5-10.1); CHLORIDE 109 mmol/L (98-107); CO2 26 mmol/L (21-32); CREATININE 0.9 mg/dL (0.55-1.3); GLUCOSE,RANDOM 118 mg/dL (74-106); POTASSIUM 3.6 mmol/L (3.5-5.1); SGOT/AST 18 U/L (15-37); SGPT/ALT 42 U/L (13-61); SODIUM 142 mmol/L (136-145); TOT PROT 7.7 g/dl (6.4-8.2)
--- NOTE | 2018-05-16 07:44 | PDOC ---
*Physical Exam - Vital Signs Last Vital Signs Temp Pulse Resp BP Pulse Ox 98.1 F 128 H 18 130/77 92 L 05/16/18 05:17 05/16/18 05:17 05/16/18 05:17 05/16/18 05:17 05/16/18 05:17 ED Treatment Course - LABORATORY CBC & Chemistry Diagram: 05/16/18 05:35 05/16/18 05:35 - ADDITIONAL ORDERS Additional order review: Laboratory Results 05/16/18 05/16/18 05/16/18 05:35 05:28 05:28 Sodium 142 Potassium 3.6 Chloride 109 H Carbon Dioxide 26 Anion Gap 7 L BUN 13 Creatinine 0.9 Creat Clearance w eGFR > 60 Random Glucose 118 H Calcium 8.7 Total Bilirubin 0.4 AST 18 ALT 42 Alkaline Phosphatase 67 Total Protein 7.7 Albumin 4.1 Opiates Screen Negative Methadone Screen Negative Barbiturate Screen Negative Phencyclidine Screen Negative Ur Amphetamines Screen Negative MDMA (Ecstasy) Screen Negative Benzodiazepines Screen Positive A* Cocaine Screen Positive A* U Marijuana (THC) Screen Negative Alcohol, Quantitative 227.4 H 05/16/18 05:35 RBC 5.03 MCV 91.0 MCHC 33.6 RDW 12.6 MPV 8.4 Neutrophils % 60.9 Lymphocytes % 29.8 Monocytes % 7.2 Eosinophils % 1.4 Basophils % 0.7 - Medications Given in the ED: ED Medications Discontinued Medications Generic Name Dose Route Start Last Admin Trade Name Freq PRN Reason Stop Dose Admin Diphenhydramine HCl 25 mg 05/16/18 05:19 05/16/18 05:43 Benadryl Injection - IVPB 05/16/18 05:20 25 mg ONCE ONE Administration Lorazepam 1 mg 05/16/18 05:19 05/16/18 05:43 Ativan Injection - IVPUSH 05/16/18 05:20 1 mg ONCE ONE Administration Metoclopramide HCl 10 mg 05/16/18 05:19 05/16/18 05:43 Reglan Injection - IVPB 05/16/18 05:20 10 mg ONCE ONE Administration Sodium Chloride 1,000 ml 05/16/18 05:19 05/16/18 05:43 Normal Saline - IV 05/16/18 05:20 1,000 ml ONCE ONE Administration Medical Decision Making - Medical Decision Making 05/16/18 07:39 Pt signed out to me by Dr. Reich at 7am shift change. Pt presented with anxiety , N/V, bilious vomiting after drinking at a club last night. She was given ativan for anxiolysis, currently resting comfortably. UTox positive for cocaine and benzos, alcohol ~270. Will continue to monitor to clinical sobriety, then will discuss test results with her. 05/16/18 08:55 Pt awake and alert, ambulatory. Reports improvement in symptoms. Test results discussed. Stable for DC home. *DC/Admit/Observation/Transfer Diagnosis at time of Disposition: Nausea & vomiting Qualifiers: Vomiting type: unspecified Vomiting Intractability: unspecified Qualified Code( s): R11.2 - Nausea with vomiting, unspecified - Discharge Dispostion Disposition: HOME Condition at time of disposition: Stable Decision to Admit order: No - Referrals Referrals: Julio Hobson MD [Primary Care Provider] - - Patient Instructions - Post Discharge Activity
[2018-05-16 08:41] VITALS: PULSE 87
[2018-05-16] MEDS ORDERED: ONDANSETRON *ODT* 4 MG TABLET SL ONE (08:58)
== END 2018-05-16 09:07 | disposition home or self-care (01) ==
LOC: FER 05:12
PROC: 3E0337Z Introduction of Electrolytic and Water Balance Substance into Peripheral Vein, Percutaneous Approach (ICD-10-PCS; principal; 2018-05-16)
PROC: 3E033GC Introduction of Other Therapeutic Substance into Peripheral Vein, Percutaneous Approach (ICD-10-PCS; 2018-05-16)
PROC: 3E033NZ Introduction of Analgesics, Hypnotics, Sedatives into Peripheral Vein, Percutaneous Approach (ICD-10-PCS; 2018-05-16)
DX: R11.2 Nausea with vomiting, unspecified (principal); F90.9 Attention-deficit hyperactivity disorder, unspecified type; F41.9 Anxiety disorder, unspecified; R10.13 Epigastric pain
CPT/HCPCS: 36415; 80053; 80307; 85025; 99283-25; J7030

== ENCOUNTER 2018-06-17 18:21 | Emergency (ER) | payer SELFPAY ==
--- NOTE | 2018-06-17 18:23 | PDOC ---
History of Present Illness <Cole Patrick - Last Filed: 06/17/18 19:02> - General History Source: Patient Exam Limitations: No Limitations - History of Present Illness Initial Comments: 06/17/18 18:55 27 year old female with PMH panic disorder, GERD, ADHD presented to ED for chest pain. She stated her pain began at 1600 today, constant, radiating to her left arm, no alleviating or aggravating factors, described as "heavy like someone is sitting on my chest." She stated her pain is associated with nausea, palpitations, lightheadedness, shortness of breath. She was seen by her ENT x6 days ago, was diagnosed with pharyngitis, placed on amoxicillin, then was still feeling unwell so she went to urgent care, was diagnosed with influenza and prescribed tamiflu. <Sangeeta Buckley - Last Filed: 06/19/18 09:33> - General Chief Complaint: Lightheaded Stated Complaint: DIZZINESS CHEST PAIN Past History <Cole Patrick - Last Filed: 06/17/18 19:02> - Past Medical History Asthma: Yes COPD: No GI Disorders: Yes (GASTRITIS) Psychiatric Problems: Yes (ADD,ANXIETY) - Immunization History Immunization Up to Date: Yes - Suicide/Smoking/Psychosocial Hx Smoking History: Current every day smoker Have you smoked in the past 12 months: Yes Number of Cigarettes Smoked Daily: 20 If you are a former smoker, when did you quit?: 20 'Breaking Loose' booklet given: 05/16/18 Hx Alcohol Use: No Drug/Substance Use Hx: No Substance Use Type: None <Sangeeta Buckley - Last Filed: 06/19/18 09:33> - Past Medical History Allergies/Adverse Reactions: Allergies Allergy/AdvReac Type Severity Reaction Status Date / Time No Known Allergies Allergy Verified 06/17/18 18:30 Home Medications: Ambulatory Orders Alprazolam [Xanax] 1 mg PO QID PRN 05/24/17 Ranitidine [Zantac -] 300 mg PO BID 11/10/17 Dextroamphetamine/Amphetamine [Adderall Xr 30 mg Capsule] 20 mg PO DAILY Ondansetron HCl [Zofran] 1 tab PO PRN 06/17/18 Paroxetine HCl 10 mg PO DAILY 06/17/18 Review of Systems - Review of Systems Able to Perform ROS?: Yes Comments:: 06/17/18 18:57 General: denied fever, chills, night sweats, generalized weakness. HEENT: denied sore throat, rhinorrhea, ear pain. Heart: admitted to chest pain, palpitations, lightheadedness. denied syncope, lower extremity swelling, diaphoresis. Respiratory: admitted to shortness of breath. denied cough, sputum production, hemoptysis. Abdomen: denied abdominal pain, nausea, vomiting, diarrhea, constipation, blood in stool. : denied dysuria, increased urinary frequency, hematuria, urinary incontinence , flank pain. Back: denied back pain. Musculoskeletal: denied joint pain, muscle pain, joint swelling. Neurological: denied headache, dizziness, numbness, tingling, weakness. Skin: denied rash, laceration, abrasion. <Sangeeta Buckley - Last Filed: 06/19/18 09:33> *Physical Exam - Vital Signs Last Vital Signs Temp Pulse Resp BP Pulse Ox 98.1 F 90 18 100/66 100 06/17/18 18:22 06/17/18 18:22 06/17/18 18:22 06/17/18 18:22 06/17/18 18:22 <Cole Patrick - Last Filed: 06/17/18 19:02> - Physical Exam Comments: 06/17/18 18:58 Constitutional: Well-nourished, Well-developed, appearing stated age. HEENT: head is normocephalic, atraumatic. EOMI. PERRLA. Neck: supple. Full ROM. Heart: regular rhythm. no murmurs, rubs or gallops. Lungs: clear to auscultation bilaterally. no crackles, rhonchi or wheezing. no stridor. Abdomen: soft, nontender. normal bowel sounds. no rebound, guarding, masses. Extremities: Peripheral pulses intact. No lower extremity edema. Neurological: CN 2-12 grossly intact. Moves all four extremities. Psych: anxious. awake, alert, oriented x3. Follows commands. Answers questions appropriately. <Sangeeta Buckley - Last Filed: 06/19/18 09:33> Moderate Sedation - Procedure Monitoring Vital Signs: Procedure Monitoring Vital Signs Temperature 98.1 F 06/17/18 18:22 Pulse Rate 90 06/17/18 18:22 Respiratory Rate 18 06/17/18 18:22 Blood Pressure 100/66 06/17/18 18:22 O2 Sat by Pulse Oximetry (%) 100 06/17/18 18:22 <Cole Patrick - Last Filed: 06/17/18 19:02> Medical Decision Making - Medical Decision Making 06/17/18 18:58 27 year old female with above PMH presented to ED for chest pain. Pt has been seen in the ED 88 times total. Initial Vital Signs Temp Pulse Resp BP Pulse Ox 98.1 F 90 18 100/66 100 06/17/18 18:22 06/17/18 18:22 06/17/18 18:22 06/17/18 18:22 06/17/18 18:22 Afebrile. No tachycardia. No tachypnea. Mild hypotension. No hypoxia on room air. Pending EKG. 06/17/18 18:59 EKG performed 03/13/2017 at 1930: rate 78, regular rhythm, normal axis, QTc 498 , no acute ST changes. 06/17/18 19:06 Pt signed out to Dr. Orozco. <Sangeeta Buckley - Last Filed: 06/19/18 09:33> *DC/Admit/Observation/Transfer <Cole Patrick - Last Filed: 06/17/18 19:02> <Sangeeta Buckley - Last Filed: 06/19/18 09:33> Diagnosis at time of Disposition: Panic attack - Discharge Dispostion Disposition: HOME Condition at time of disposition: Stable - Patient Instructions Printed Discharge Instructions: Anxiety Disorders Additional Instructions: Continue medications as prescribed Follow-up with psychopharmacologist later this month as scheduled Follow-up with Dr. Hobson as scheduled Return to ER as needed for severe symptoms
[2018-06-17 18:39] VITALS: BP 100/66; PULSE 90; TEMP 98.1; BMI 38.9
--- NOTE | 2018-06-17 19:03 | PDOC ---
Attending Attestation - [facility] HPI: 06/17/18 19:03 The patient is a 27 year old female, with a significant past medical history of panic attacks. GERD, and ADHD, who presents to the emergency department with, 3 hours of chest pain and lightheadedness. Patient describes her chest pain as constant, heavy, radiating to her left arm with associated left arm numbness, palpitations, and nausea. Patient notes to normally get chest pain with her panic attacks. She was recently seen at her ENTs office and diagnosed with an infection, placed on Amoxicillin. She was then seen in urgent care and diagnosed with the flu, placed on Tamiflu. She denies recent fevers, chills, or headache. She denies recent vomit, diarrhea or constipation. She denies recent dysuria, frequency, urgency or hematuria. She denies recent shortness of breath. Allergies: NKDA - Physicial Exam PE: 06/17/18 19:12 GENERAL: Well developed, well nourished. Awake and alert. No acute distress. HEENT: Normocephalic, atraumatic. PERRLA, EOMI. No conjunctival pallor. Sclera are non- icteric. Moist mucous membranes. Oropharynx is clear. NECK: Supple. Full ROM. No JVD. Carotid pulses 2+ and symmetric, without bruits. No thyromegaly. No lymphadenopathy. CARDIOVASCULAR: Regular rate and rhythm. No murmurs, rubs, or gallops. Distal pulses are 2+ and symmetric. PULMONARY: No evidence of respiratory distress. Lungs clear to auscultation bilaterally. No wheezing, rales or rhonchi. ABDOMINAL: Soft. Non-tender. Non-distended. No rebound or guarding. No organomegaly. Normoactive bowel sounds. MUSCULOSKELETAL Normal range of motion at all joints. No bony deformities or tenderness. No CVA tenderness. EXTREMITIES: No cyanosis. No clubbing. No edema. No calf tenderness. SKIN: Warm and dry. Normal capillary refill. No rashes. No jaundice. NEUROLOGICAL: Alert, awake, appropriate. Cranial nerves 2-12 intact. No deficits to light touch and temperature in face, upper extremities and lower extremities. No motor deficits in the in face, upper extremities and lower extremities. Normoreflexic in the upper and lower extremities. Normal speech. Toes are down- going bilaterally. Gait is normal without ataxia. PSYCHIATRIC: Cooperative. Good eye contact. Appropriate mood and affect. <Tabatha Escamilla - Last Filed: 06/17/18 19:12> - Resident Resident Name: Sangeeta Buckley - ED Attending Attestation I have performed the following: I have examined & evaluated the patient, The case was reviewed & discussed with the resident, I agree w/resident's findings & plan, Exceptions are as noted - Medical Decision Making 06/21/18 18:54 EKG is normal. Patient's symptoms appeared to be due to anxiety/hyperventilation /panic disorder Reassure. Relaxation techniques discussed. Follow-up primary physician as directed. <Cole Patrick - Last Filed: 06/21/18 18:55> Attestations - Attestations 06/17/18 19:03 Documentation prepared by Tabatha Escamilla, acting as paramedical aide for Cole Conway MD. <Tabatha Escamilla - Last Filed: 06/17/18 19:12>
[2018-06-17] MEDS ORDERED: ALPRAZolam 1 MG TABLET PO PRN (19:47)
[2018-06-17] MEDS ORDERED: ALPRAZolam 0.25 MG TABLET ONE (19:53)
--- NOTE | 2018-06-17 20:12 | PDOC ---
*Physical Exam - Vital Signs Last Vital Signs Temp Pulse Resp BP Pulse Ox 98.1 F 90 18 100/66 100 06/17/18 18:22 12 18:22 06/17/18 18:22 06/17/18 18:22 06/17/18 18:22 Progress Note - Progress Note Progress Note: care of this patient received from . Patient interviewed and examined. Twelve-lead electrocardiogram is performed: Preliminary interpretation normal sinus rhythm at 87 bpm; wave forms and axis are normal. QTc is slightly prolonged at 498 ms. No evidence of acute ST or T- wave abnormalities. No evidence of cardiac arrhythmia. The patient states that her symptoms are totally consistent with previous episodes of panic attack. No evidence that this episode is related to acute cardiac or pulmonary disease process. Further evaluation and care of her anxiety disorder is pending follow-up with psychopharmacologist later this month (arranged by her PMD, Dr. Hobson, at [facility]). Meanwhile, the patient was given additional 1 mg dose of Xanax by mouth and felt significantly better. She will be discharged with instructions to continue her medications as prescribed and return to ER as needed. *DC/Admit/Observation/Transfer Diagnosis at time of Disposition: Panic attack - Discharge Dispostion Disposition: HOME Condition at time of disposition: Stable - Referrals - Patient Instructions Printed Discharge Instructions: Anxiety Disorders Additional Instructions: Continue medications as prescribed Follow-up with psychopharmacologist later this month as scheduled Follow-up with Dr. Hobson as scheduled Return to ER as needed for severe symptoms - Post Discharge Activity
--- NOTE | 2018-06-18 10:30 | EKG ---
Test Reason : Blood Pressure : / mmHG Vent. Rate : 087 BPM Atrial Rate : 087 BPM P-R Int : 138 ms QRS Dur : 088 ms QT Int : 414 ms P-R-T Axes : 046 074 048 degrees QTc Int : 498 ms NORMAL SINUS RHYTHM PROLONGED QT ABNORMAL ECG WHEN COMPARED WITH ECG OF 13-MAR-2017 19:30, NO SIGNIFICANT CHANGE WAS FOUND Confirmed by SUZY ANAYA MD ([id number]) on 06/18/2018 10:30:11 AM Referred By: MD NAM Confirmed By:SUZY ANAYA MD
== END 2018-06-17 20:14 | disposition home or self-care (01) ==
LOC: FER 18:21
DX: F41.0 Panic disorder [episodic paroxysmal anxiety] (principal); F17.210 Nicotine dependence, cigarettes, uncomplicated; K52.9 Noninfective gastroenteritis and colitis, unspecified; F98.8 Other specified behavioral and emotional disorders with onset usually occurring in childhood and adolescence; K21.9 Gastro-esophageal reflux disease without esophagitis
CPT/HCPCS: 93005; 99281-25

== ENCOUNTER 2019-02-01 13:57 | Emergency (ER) | payer OTHER ==
[2019-02-01 14:10] VITALS: BMI 47.0
[2019-02-01] MEDS ORDERED: ACETAMINOPHEN 325 MG TABLET (FP) PO ONE (14:36)
[2019-02-01] MEDS ORDERED: ACETAMINOPHEN 325 MG TABLET (FP) ONE (14:37)
[2019-02-01] MEDS ORDERED: Pregnancy Control Solution IV ONE (14:41)
--- NOTE | 2019-02-01 14:42 | PDOC ---
History of Present Illness - General Chief Complaint: Injury Stated Complaint: pain rt 3 rd finger,rt eye echymoses,multiple brui Time Seen by Provider: 02/01/19 14:09 History Source: Patient Exam Limitations: No Limitations - History of Present Illness Initial Comments: 02/01/19 14:42 28y F hx of asthma, presenst with the complaint of pain - she was ambulating on a wendy walk on friday night and triped and fell, htting her head/R hand/ wrist and L elbow. Pt denies any LOC. notes there was a cut above her R eye brow that was bleeding but has since stopped. Pt denies any n/v, blurry/double vision neck pain, back pain, shoulder pain, numbness/tingling/weakness. No symptoms prior to syncope. pt came today as her finger was hurting more. not does nto recall her last tetanus, but does not want one now. i discussed the risks but pt states she doesnt want it Constitutional - no reported Fever, Chills, HEENT: +head pain/laceration no reported vision changes, sore throat Respiratory: no reported cough, sob, hemoptysis Cardiac: no reported chest pain, palpitations, light headedness, leg swelling Abd/GI: no reported abd pain, nausea, vomiting, blood per rectum, melena, diarrhea : no reported dysuria, frequency, discharge Musculskelatal - +l elbow pain, +R wrist/finger pain no reported back pain, joint swelling skin - no reported bruising, erythema, rash neurological: no reported headache, numbness, focal weakness, tingling, ataxia, hematologic: no reported easy bruising, easy bleeding GENERAL: The patient is awake, alert, and fully oriented, Nontoxic - in no acute distress, obese HEAD: mild ttp R supraorbital ridge with induration, EOMI, ~1cm laceration with dried blood, non gaping EYES: extraocular movements intact, sclera anicteric, contusion, ENT: Normal voice, Moist mucous membranes. NECK: Normal range of motion, supple, no midline tenderness of cervical spine, BACK: No focal ttp of thoracic/lumbar spine, no cva ttp, LUNGS: Breath sounds equal, clear to auscultation bilaterally. No wheezes, no rhonchi, no rales. HEART: Regular rate and rhythm, normal S1 and S2 without murmur, rub or gallop. ABDOMEN: Soft, nontender, No guarding, no rebound. No CVA tenderness EXTREMITIES: Normal range of motion, no edema. mild diffuse ttp to R wrist, diffuse ttp to R middle finger with mild edema on distal fniger, +ttp and abrasion on L elbow, ROM of 3rd digit limited by pain NEUROLOGICAL: No facial assymetry, Normal speech, PSYCH: Normal mood, normal affect. SKIN: Warm, Dry, normal turgor, xray to r/o fx of L elbow/wrist/fingers pt declines tetanus tylenol for pain Past History - Past Medical History Allergies/Adverse Reactions: Allergies Allergy/AdvReac Type Severity Reaction Status Date / Time No Known Allergies Allergy Verified 02/01/19 13:59 Home Medications: Ambulatory Orders Alprazolam [Xanax] 1 mg PO QID PRN 05/24/17 Dextroamphetamine/Amphetamine [Adderall Xr 30 mg Capsule] 20 mg PO DAILY Escitalopram Oxalate [Lexapro -] 5 mg PO DAILY 02/01/19 Tramadol HCl 50 mg PO QID PRN #12 tablet MDD 4 02/01/19 Asthma: Yes COPD: No GI Disorders: Yes (GASTRITIS) Psychiatric Problems: Yes (ADD,ANXIETY) - Immunization History Immunization Up to Date: Yes - Suicide/Smoking/Psychosocial Hx Smoking History: Current every day smoker Have you smoked in the past 12 months: Yes Number of Cigarettes Smoked Daily: 10 If you are a former smoker, when did you quit?: 20 Information on smoking cessation initiated: Yes 'Breaking Loose' booklet given: 05/16/18 Hx Alcohol Use: Yes Drug/Substance Use Hx: No Substance Use Type: None *Physical Exam - Vital Signs Last Vital Signs Temp Pulse Resp BP Pulse Ox 98.7 F 69 18 107/69 98 02/01/19 13:59 02/01/19 13:59 02/01/19 13:59 02/01/19 13:59 02/01/19 13:59 ED Treatment Course - RADIOLOGY Radiology Studies Ordered: Category Date Time Status ELBOW-LEFT [RAD] Stat Radiology 02/01/19 14:35 Ordered FINGER(S) RIGHT [RAD] Stat Radiology 02/01/19 14:32 Ordered WRIST W/HAND-RIGHT* [RAD] Stat Radiology 02/01/19 14:32 Ordered Medical Decision Making - Medical Decision Making 02/01/19 15:19 xray of hand/finger noted for fracture of proximal portion of distal phylange of R middle finger xray elbow and wrist neg finger splint was placed and will have pt fu w ortho analgesia & supportive care I discussed the physical exam findings, ancillary test results and final diagnoses with the patient. I answered all of the patient's questions. The patient was satisfied with the care received and felt comfortable with the discharge plan and treatment plan. The patient will call their primary care physician within 24 hours to arrange follow-up and will return to the Emergency Department with any new, persistent or worsening symptoms. *DC/Admit/Observation/Transfer Diagnosis at time of Disposition: Eye contusion Qualifiers: Encounter type: initial encounter Laterality: right Qualified Code(s): S05.11XA - Contusion of eyeball and orbital tissues, right eye, initial encounter Finger fracture, right Qualifiers: Encounter type: initial encounter Finger: middle finger Fracture type: closed Phalanx: distal Fracture alignment: nondisplaced Qualified Code(s): S62.662A - Nondisplaced fracture of distal phalanx of right middle finger, initial encounter for closed fracture Abrasion of elbow, left Qualifiers: Encounter type: initial encounter Qualified Code(s): S50.312A - Abrasion of left elbow, initial encounter - Discharge Dispostion Disposition: HOME Condition at time of disposition: Improved Decision to Admit order: No - Prescriptions Prescriptions: Tramadol HCl 50 mg PO QID PRN #12 tablet MDD 4 PRN Reason: Pain - Referrals Referrals: Julio Hobson MD [Staff Physician] - Mo Espinoza MD [Staff Physician] - - Patient Instructions Printed Discharge Instructions: DI for Eye Contusion, DI for Finger Fracture, DI for Abrasion Additional Instructions: Return to the emergency department immediately with ANY new, persistent or worsening symptoms. Leave the finger splint on Take tylenol,otrin for pain. Keep your arm elevated to minimze swelling You MUST call and follow up with your doctor tomorrow for further evaluation of your symptoms. Results were discussed with you. Please make sure your doctor reviews the results of your emergency evaluation. Your Emergency Department visit is not complete without a follow up with your doctor. If you had any xrays during your visit, it was read preliminarily by myself, a Radiologist will review it and if there are any additional findings we will call you. Print Language: DANISH - Post Discharge Activity
[2019-02-01 14:44] VITALS: BP 107/69; PULSE 69; TEMP 98.7
== END 2019-02-01 16:37 | disposition home or self-care (01) ==
LOC: FER 13:57
PROC: 2W3JX1Z Immobilization of Right Finger using Splint (ICD-10-PCS; principal; 2019-02-01)
DX: S50.312A Abrasion of left elbow, initial encounter (principal); S05.11XA Contusion of eyeball and orbital tissues, right eye, initial encounter; S62.662A Nondisplaced fracture of distal phalanx of right middle finger, initial encounter for closed fracture; W18.09XA Striking against other object with subsequent fall, initial encounter; Y93.89 Activity, other specified; Y92.89 Other specified places as the place of occurrence of the external cause; F17.210 Nicotine dependence, cigarettes, uncomplicated; K52.9 Noninfective gastroenteritis and colitis, unspecified
CPT/HCPCS: 73070-TC-LT-FY; 73110-TC-RT-FY; 73130-TC-RT-FY; 81025; 99281-25

== ENCOUNTER 2019-02-04 20:14 | Emergency (ER) | payer OTHER ==
--- NOTE | 2019-02-04 20:33 | PDOC ---
History of Present Illness - General Chief Complaint: Headache Stated Complaint: H/A & DIZZINESS Time Seen by Provider: 02/04/19 20:30 History Source: Patient Exam Limitations: No Limitations - History of Present Illness Initial Comments: Nathalie Escamilla is a 28 yo morbidly obese F w a pmh of asthma, Ovarian torsion, GERD, gastritis, ADHD, anxiety, and dyspepsia, panic disorder, who presents to the [facility] via walk in with a headache and dizziness. The patient states she was seen here a few days ago after she fell and experienced multiple injuries where she was diagnosed w a right arm injury. The patient states that since she was here she has had increasing headache, nausea, vomiting , blurry vision, and significant disequilibrium. What worries her the most is she feels extremely dizzy, lightheaded, and like she can't walk straight. She states that she did not inform the doctors last time she was here how bad her fall and head trauma was. She states that she was very drunk when she fell and her friends who witnessed her head trauma said it was significant and everyone was worried. Patient denies recent fevers, chills, infections, chest pain, SOB, difficulty breathing, back pain, dysuria, frequency, urgency, or abdominal pain. PCP: Julio Hobson GI: Dr. Stevens at [facility] Hx: Smokes 1 PPD Allergies: NKA, NKDA PSH: Ovarian cystectomy Past History - Past Medical History Allergies/Adverse Reactions: Allergies Allergy/AdvReac Type Severity Reaction Status Date / Time No Known Allergies Allergy Verified 02/01/19 13:59 Home Medications: Ambulatory Orders Alprazolam [Xanax] 1 mg PO QID PRN 05/24/17 Dextroamphetamine/Amphetamine [Adderall Xr 30 mg Capsule] 20 mg PO DAILY Escitalopram Oxalate [Lexapro -] 5 mg PO DAILY 02/01/19 Tramadol HCl 50 mg PO QID PRN #12 tablet MDD 4 02/01/19 Doxylamine Succinate/Vit B6 [Dewayne Gutiérrez 10-10 mg Tablet] 1 each PO TID PRN 5 Days #15 tablet. 02/04/19 Asthma: Yes COPD: No GI Disorders: Yes (GASTRITIS) Psychiatric Problems: Yes (ADD,ANXIETY) - Immunization History Immunization Up to Date: Yes - Suicide/Smoking/Psychosocial Hx Smoking History: Current every day smoker Have you smoked in the past 12 months: Yes Number of Cigarettes Smoked Daily: 10 If you are a former smoker, when did you quit?: 20 Information on smoking cessation initiated: Yes 'Breaking Loose' booklet given: 05/16/18 Hx Alcohol Use: Yes Drug/Substance Use Hx: Yes Substance Use Type: None Review of Systems - Review of Systems Able to Perform ROS?: Yes Comments:: CONSTITUTIONAL: Absent: fever, chills, diaphoresis, generalized weakness, malaise, loss of appetite HEENT: Present: Eye pain, visual changes Absent: rhinorrhea, nasal congestion, throat pain, throat swelling, difficulty swallowing, mouth swelling, ear pain, eye pain CARDIOVASCULAR: Absent: chest pain, syncope, palpitations, irregular heart rate, lightheadedness , peripheral edema RESPIRATORY: Absent: cough, shortness of breath, dyspnea with exertion, orthopnea, wheezing, stridor, hemoptysis GASTROINTESTINAL: Present: Nausea, vomiting Absent: abdominal pain, abdominal distension, diarrhea, constipation, melena, hematochezia GENITOURINARY: Absent: dysuria, frequency, urgency, hesitancy, hematuria, flank pain, genital pain MUSCULOSKELETAL: Absent: myalgia, arthralgia, joint swelling SKIN: Absent: rash, itching, pallor HEMATOLOGIC/IMMUNOLOGIC: Absent: easy bleeding, easy bruising, lymphadenopathy, frequent infections ENDOCRINE: Absent: unexplained weight gain, unexplained weight loss, heat intolerance, cold intolerance NEUROLOGIC: Present: Headache, dizziness, unsteady gait Absent: focal weakness or paresthesias, seizure, mental status changes, bladder or bowel incontinence PSYCHIATRIC: Absent: anxiety, depression, suicidal or homicidal ideation, hallucinations. *Physical Exam - Vital Signs Last Vital Signs Temp Pulse Resp BP Pulse Ox 97.9 F 95 H 16 106/61 99 02/04/19 20:16 02/04/19 20:16 02/04/19 20:16 02/04/19 20:16 02/04/19 20:16 - Physical Exam Comments: GENERAL: Well developed, well nourished. Awake and alert. Moderate distress. HEENT: There is swelling and echymosis around the right eye. There is also a 2 cm clean well approximated laceration on the right eyelid. Normocephalic. PERRLA, EOMI. No conjunctival pallor. Sclera are non-icteric. Moist mucous membranes. Oropharynx is clear. NECK: Supple. Full ROM. No JVD. No thyromegaly. No lymphadenopathy. CARDIOVASCULAR: Regular rate and rhythm. No murmurs, rubs, or gallops. Distal pulses are 2+ and symmetric. PULMONARY: No evidence of respiratory distress. Lungs clear to auscultation bilaterally. No wheezing, rales or rhonchi. ABDOMINAL: Soft. Non-tender. Non-distended. No rebound or guarding. No organomegaly. Normoactive bowel sounds. MUSCULOSKELETAL Normal range of motion at all joints. No bony deformities or tenderness. No CVA tenderness. EXTREMITIES: No cyanosis. No clubbing. No edema. No calf tenderness. SKIN: Warm and dry. Normal capillary refill. No rashes. No jaundice. NEUROLOGICAL: Alert, awake, appropriate. Cranial nerves 2-12 intact. No deficits to light touch in face, upper extremities and lower extremities. No motor deficits in the in face, upper extremities and lower extremities. Normal speech. Gait is ataxic. PSYCHIATRIC: Cooperative. Good eye contact. Appropriate mood and affect. ED Treatment Course - RADIOLOGY Radiograph Interpretation: Facial CT: History provided: Rule out fracture. Sequential axial images were obtained through the facial bones. Coronal and sagittal reconstructed images were also performed. There is no evidence of fracture or acute bony pathology. The orbits are intact with no intraorbital masses or fluid collections. The paranasal sinuses are clear. IMPRESSION: No evidence of facial bone fracture or acute pathology. Head CT: HISTORY PROVIDED: Rule out bleed TECHNIQUE: Sequential axial images were obtained from the base of the skull to the vertex. There is no evidence of acute intracranial hemorrhage, mass lesions or infarctions. There is no evidence of fracture or acute bony pathology. IMPRESSION: Normal CT scan of the head with no evidence of acute intracranial pathology. Medical Decision Making - Medical Decision Making Nathalie Escamilla is a 28 yo morbidly obese F w a pmh of asthma, GERD, gastritis, ADHD, anxiety, and dyspepsia, panic disorder, who presents to the [facility] via walk in with a headache and dizziness. The patient states she was seen here a few days ago after she fell and experienced multiple injuries where she was diagnosed w a right arm injury. The patient states that since she was here she has had increasing headache, nausea, vomiting, blurry vision, and significant disequilibrium. What worries her the most is she feels extremely dizzy, lightheaded, and like she can't walk straight. She states that she did not inform the doctors last time she was here how bad her fall and head trauma was. She states that she was very drunk when she fell and her friends who witnessed her head trauma said it was significant and everyone was worried. Patient denies recent fevers, chills, infections, chest pain, SOB, difficulty breathing, back pain, dysuria, frequency, urgency, or abdominal pain. Vital Signs Temp Pulse Resp BP Pulse Ox 97.9 F 95 H 16 106/61 99 02/04/19 20:16 02/04/19 20:16 02/04/19 20:16 02/04/19 20:16 02/04/19 20:16 DDx IBNLT: Concussion, brain bleed, facial fx, other head injury. Plan: Head CT, POC Hcg, analgesia, IV hydration, re-assess. HCG: Negative Head CT: No acute pathology and no bleed Facial CT: No acute pathology and no Fx Re-assessment: Patient feels better after meds and is assured she doesn't have a brain bleed. Disposition: Home with return precautions, neuro and PCP follow up *DC/Admit/Observation/Transfer Diagnosis at time of Disposition: Concussion Qualifiers: Encounter type: subsequent encounter Loss of consciousness presence/duration: without LOC Qualified Code(s): S06.0X0D - Concussion without loss of consciousness, subsequent encounter - Discharge Dispostion Disposition: HOME Condition at time of disposition: Stable Decision to Admit order: No - Prescriptions Prescriptions: Doxylamine Succinate/Vit B6 [Dewayne Gutiérrez 10-10 mg Tablet] 1 each PO TID PRN 5 Days #15 tablet. PRN Reason: Nausea And/Or Vomiting - Referrals Referrals: Julio Hobson MD [Primary Care Provider] - Kwame Hannon MD [Staff Physician] - - Patient Instructions Printed Discharge Instructions: DI for Concussion, Postconcussion Syndrome Additional Instructions: You came into the ER with a headache, nausea, and dizziness after you experienced head trauma. We did a cat scan of your head which was normal. We believe you have experienced a concussion and have post-concussive syndrome. Please read the attached handouts regarding concussions and post-concussive syndrome. We are giving you the number of a neurologist - Dr. Hannon - to call and schedule an appointment with. Please make sure to schedule a follow up appointment in the next 3 to 5 days. 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 Come back to the ER immediately if you get a really bad headache, start vomiting , or have any other new or worsening concerns. Thank you for coming to the [facility]. We hope you feel better soon! Print Language: LITHUANIAN - Post Discharge Activity
[2019-02-04 20:34] VITALS: BP 106/61; PULSE 95; TEMP 97.9; BMI 46.9
[2019-02-04] MEDS ORDERED: ACETAMINOPHEN 325 MG TABLET (FP) PO ONE (20:41)
[2019-02-04] MEDS ORDERED: ACETAMINOPHEN 325 MG TABLET (FP) ONE (20:43)
[2019-02-04] MEDS ORDERED: METOCLOPRAMIDE HCL INJECTION 10 MG/2 ML VIAL IVPUSH ONE (20:44)
[2019-02-04] MEDS ORDERED: SODIUM CHLORIDE 0.9% 500 ML INFUS.BAG IV ONE (20:45)
[2019-02-04] MEDS ORDERED: METOCLOPRAMIDE HCL INJECTION 10 MG/2 ML VIAL ONE (20:51)
--- NOTE | 2019-02-04 22:07 | PDOC ---
Documentation entered by Nikia Mak SCRIBE, acting as scribe for Yasmine Perea MD. Yasmine Perea MD: This documentation has been prepared by the salome, Nikia Mak SCRIBE, under my direction and personally reviewed by me in its entirety. I confirm that the documentation accurately reflects all work , treatment, procedures, and medical decision making performed by me. Attending Attestation - Resident Resident Name: Oscar Ahuja - ED Attending Attestation I have performed the following: I have examined & evaluated the patient, The case was reviewed & discussed with the resident, I agree w/resident's findings & plan, Exceptions are as noted - HPI HPI: 02/04/19 21:08 The patient is a 28-year-old female presents to the emergency department s/p a fall a week ago, now presents with headache, dizziness, nausea and unsteady gait. The patient reports about a week ago she suffered a fall, while she was intoxicated. The patient states she was seen at the ER on Friday (02/01), where she had an X-ray of the hand done, which was significant for proximal portion of distal phalange of R middle finger. During the visit, the patient was noted to have a laceration to the left eye with dried blood. The patient presents today with severe headache, dizziness, nausea, and unsteady gait. Denies fever or chills. PAST MEDICAL HISTORY: Morbid obese and depression. PAST SURGICAL HISTORY: no significant history FAMILY HISTORY: no pertinent history SOCIAL HISTORY: Pt lives with family. MEDICATIONS: reviewed ALLERGIES: As per nursing notes PCP: Dr. Hobson. - Physicial Exam PE: 02/04/19 21:57 GENERAL: The patient is awake, alert, and fully oriented, in no acute distress. HEAD: Normal with no signs of trauma. EYES: +ecchymosis and abrasion to the periorbital area of the right eye with tenderness on palpation. Pupils equal, round and reactive to light, extraocular movements intact, sclera anicteric, conjunctiva clear. NECK: no cervical spine tenderness. No meningeal signs EXTREMITIES: Normal range of motion, no edema. NEUROLOGICAL: Normal speech, normal gait. PSYCH: Normal mood, normal affect. SKIN: Warm, Dry, normal turgor, no rashes or lesions noted. - Medical Decision Making 02/04/19 22:04 Assessment and plan: This is a 28-year-old female who comes in complaining of leg and dizziness 5 days. Patient was in the ED after a fall onto her face on Friday night. Patient did not get a CAT scan at that time. Patient got a CAT scan here tonight along with facial bones which were normal. Patient was given pain medication and nausea medication. Patient discharged home with neurology follow-up.
== END 2019-02-04 22:07 | disposition home or self-care (01) ==
LOC: FER 20:14
PROC: 3E0337Z Introduction of Electrolytic and Water Balance Substance into Peripheral Vein, Percutaneous Approach (ICD-10-PCS; principal; 2019-02-04)
PROC: 3E033GC Introduction of Other Therapeutic Substance into Peripheral Vein, Percutaneous Approach (ICD-10-PCS; 2019-02-04)
DX: S06.0X0D Concussion without loss of consciousness, subsequent encounter (principal); W18.39XD Other fall on same level, subsequent encounter; Y93.9 Activity, unspecified; E66.01 Morbid (severe) obesity due to excess calories; Z68.42 Body mass index [BMI] 45.0-49.9, adult; J45.909 Unspecified asthma, uncomplicated; K21.9 Gastro-esophageal reflux disease without esophagitis; F90.9 Attention-deficit hyperactivity disorder, unspecified type; F41.9 Anxiety disorder, unspecified; R10.13 Epigastric pain
CPT/HCPCS: 70450-TC; 70486-TC; 81025; 99282-25

== ENCOUNTER 2019-04-13 23:31 | Emergency (ER) | payer OTHER ==
[2019-04-14] MEDS ORDERED: ALPRAZolam 1 MG TABLET PO PRN (00:30)
--- NOTE | 2019-04-14 00:34 | PDOC ---
History of Present Illness - General Chief Complaint: Pain, Acute Stated Complaint: PANIC ATTACK,DIFFICULTY BREATHING CHEST PAIN Time Seen by Provider: 04/13/19 23:56 - History of Present Illness Initial Comments: This 28 y.o. woman with a history of anxiety/depression and occasional panic attacks presents with few hour history of left upper chest pain. She states that pain began this evening while she was resting, watching television. No shortness of breath, nausea, diaphoresis,abdominal pain noted. No history of trauma/ overuse of chest muscles. The patient states she became worried about the pain and this caused the pain to become more severe. She has no history of fibromyalgia or trigger points. Cardiac risk factors: + smoker(10-20 cigarettes/day), otherwise none Past History - Past Medical History Allergies/Adverse Reactions: Allergies Allergy/AdvReac Type Severity Reaction Status Date / Time No Known Allergies Allergy Verified 02/01/19 13:59 Home Medications: Ambulatory Orders Alprazolam [Xanax] 1 mg PO QID PRN 05/24/17 Dextroamphetamine/Amphetamine [Adderall Xr 30 mg Capsule] 20 mg PO DAILY Escitalopram Oxalate [Lexapro -] 5 mg PO DAILY 02/01/19 Tramadol HCl 50 mg PO QID PRN #12 tablet MDD 4 02/01/19 Doxylamine Succinate/Vit B6 [Dewayne Gutiérrez 10-10 mg Tablet] 1 each PO TID PRN 5 Days #15 tablet. 02/04/19 Diclofenac Sodium [Voltaren -] 75 mg PO BID PRN #10 tablet. 04/14/19 Asthma: Yes COPD: No GI Disorders: Yes (GASTRITIS) Psychiatric Problems: Yes (ADD,ANXIETY) - Immunization History Immunization Up to Date: Yes - Psycho Social/Smoking Cessation Hx Smoking History: Current every day smoker Have you smoked in the past 12 months: Yes Number of Cigarettes Smoked Daily: 10 If you are a former smoker, when did you quit?: 20 'Breaking Loose' booklet given: 05/16/18 Hx Alcohol Use: Yes Drug/Substance Use Hx: No Substance Use Type: None Heart Score/ECG Review - History History: Slightly suspicious - Electrocardiogram EKG: Normal - Age Age: </= 45 - Risk Factors Risk Factors Heart Score: Yes Smoking History Based on the list above the patient has:: 1-2 risk factors Medical Decision Making - Medical Decision Making This 28 y.o woman with a history of depression/anxiety presents with few hour history of left upper chest pain. No associated symptoms noted. Exam notable for significant tenderness of chest wall in area of pain. Lung and cardiac exam are otherwise normal. 12 lead EKG performed and interpreted by me: NSR at 74/bpm. [place], waveforms, intervals are all normal(Qt prolongation seen on previous tracings now resolved) . No evidence of acute ST or T wave abnormalities seen. No evidence of acute cardiac arrythmia. Because of the marked chest wall tenderness at the area of pain, etiology of pain likely musculoskeletal(muscle strain or costochondritis). The patient states that she generally doesnt take any OTC medications("I dont like taking pills"); will treat with Toradol 60 mg IM now and small(#10) prescription for diclofenac 75 mg twice a day as needed with a meal will be sent to her pharmacy. Meanwhile, the patient is already scheduled to followup with her PMD(Dr Hobson) within the next few days Discharge - Discharge Information Problems reviewed: Yes Clinical Impression/Diagnosis: Atypical chest pain Condition: Stable Disposition: HOME - Additional Discharge Information Prescriptions: Diclofenac Sodium [Voltaren -] 75 mg PO BID PRN #10 tablet.dr MONTES Reason: Pain - Follow up/Referral - Patient Discharge Instructions Patient Printed Discharge Instructions: DI for Costochondritis Additional Instructions: avoid strenuous upper body activity for the next week Diclofenac 75 mg twice a day as needed for pain; take with food take all medications as prescribed return to ER if you have persistent, severe pain or shortness of breath followup with Dr Hobson within next 2-3 days - Post Discharge Activity
[2019-04-14] MEDS ORDERED: KETOROLAC TROMETHAMINE 60 MG/2 ML VIAL IM ONE (00:45)
[2019-04-14] MEDS ORDERED: KETOROLAC TROMETHAMINE 60 MG/2 ML VIAL ONE (00:45)
--- NOTE | 2019-04-14 10:26 | EKG ---
Test Reason : Blood Pressure : / mmHG Vent. Rate : 090 BPM Atrial Rate : 090 BPM P-R Int : 160 ms QRS Dur : 094 ms QT Int : 388 ms P-R-T Axes : 039 047 025 degrees QTc Int : 474 ms NORMAL SINUS RHYTHM NORMAL ECG WHEN COMPARED WITH ECG OF 17-JUN-2018 19:05, NO SIGNIFICANT CHANGE WAS FOUND Confirmed by MAYELA YODER MD ([id number]) on 04/14/2019 10:25:53 AM Referred By: THERESA MOLINA Confirmed By:MAYELA YODER MD
== END 2019-04-14 00:55 | disposition home or self-care (01) ==
LOC: FER 23:31
PROC: 3E0233Z Introduction of Anti-inflammatory into Muscle, Percutaneous Approach (ICD-10-PCS; principal; 2019-04-13)
DX: R07.89 Other chest pain (principal); F41.8 Other specified anxiety disorders; F17.210 Nicotine dependence, cigarettes, uncomplicated; F98.8 Other specified behavioral and emotional disorders with onset usually occurring in childhood and adolescence; J45.909 Unspecified asthma, uncomplicated; K29.70 Gastritis, unspecified, without bleeding
CPT/HCPCS: 93005; 96372; 99281-25

== ENCOUNTER 2020-02-29 20:27 | Emergency (ER) | payer OTHER ==
[2020-02-29 20:36] VITALS: TEMP 98.4; BMI 34.4
[2020-02-29] MEDS ORDERED: SODIUM CHLORIDE 1,000 ML IV ONE (20:50)
[2020-02-29] MEDS ORDERED: KETOROLAC TROMETHAMINE 30 MG/1 ML VIAL IVPUSH ONE (20:50)
[2020-02-29] MEDS ORDERED: KETOROLAC TROMETHAMINE 30 MG/1 ML VIAL ONE (20:57)
[2020-02-29 21:08] LABS: HCG,QUALITATIVE URINE Negative
[2020-02-29 21:15] LABS: HEMATOCRIT 44.3 % (32.4-45.2); HEMOGLOBIN 15.3 GM/dl (10.7-15.3); MCH 32.2 pg (25.7-33.7); MCHC 34.5 g/dl (32.0-36.0); MEAN CELL VOLUME 93.4 fl (80-96); PLATELET COUNT 249 K/MM3 (134-434); RBC 4.74 M/mm3 (3.60-5.2); RDW 12.5 % (11.6-15.6); WHITE BLOOD COUNT 12.5 K/mm3 (4.0-10.8)
[2020-02-29 21:16] LABS: ALBUMIN 3.9 g/dl (3.4-5.0); CALCIUM 9.2 mg/dl (8.5-10); POTASSIUM 3.8 mmol/L (3.5-5.1); TOT PROT 7.1 g/dl (6.4-8.2)
[2020-02-29 21:26] LABS: EPITHELIAL CELLS FEW /hpf
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
[2020-02-29 21:41] LABS: PLATELET ESTIMATE ADEQUATE
[2020-02-29 22:49] VITALS: BP 118/78; PULSE 80
== END 2020-02-29 22:49 | disposition home or self-care (01) ==
LOC: FER 20:27
PROC: 3E0333Z Introduction of Anti-inflammatory into Peripheral Vein, Percutaneous Approach (ICD-10-PCS; principal; 2020-02-29)
PROC: 3E0337Z Introduction of Electrolytic and Water Balance Substance into Peripheral Vein, Percutaneous Approach (ICD-10-PCS; 2020-02-29)
DX: S63.502A Unspecified sprain of left wrist, initial encounter (principal); S30.1XXA Contusion of abdominal wall, initial encounter
CPT/HCPCS: 36415; 73110-TC-LT-FY; 74177-TC; 80053; 81003; 81015; 83690; 84703; 85025; 99285-25; Q9967

== ENCOUNTER 2021-08-14 11:40 | Emergency (ER) | payer OTHER ==
[2021-08-14 12:10] VITALS: BP 102/55; PULSE 95; TEMP 98.7; BMI 42.5
== END 2021-08-14 13:50 | disposition home or self-care (01) ==
LOC: FER 11:40
DX: R20.0 Anesthesia of skin (principal)
CPT/HCPCS: 84703; 99283-25